=== PATIENT | female | born 1965 | race African-American/Black ===

== ENCOUNTER 2016-09-05 12:56 | Inpatient (IN) | payer OTHER ==
[~2016-09-05] VITALS: Ht 163.8 cm; Wt 62.6 kg
[2016-09-05 14:59] VITALS: BP 122/77
[2016-09-05] MEDS ORDERED: Tylenol #3 tab (300mg/30mg) ORAL ONE (15:15)
[2016-09-05 15:17] LABS: KETONES,URINE NEGATIVE (NEGATIVE); LEUKOCYTE ESTERASE ,URINE NEGATIVE (NEGATIVE); NITRITE,URINE NEGATIVE (NEGATIVE); PH,URINE 6 (4.5-8.0); PROTEIN,URINE 1+ (NEGATIVE); UROBILINOGEN,URINE NORMAL MG/DL (0.0-1.0)
[2016-09-05 15:18] LABS: APPEARANCE,URINE CLEAR
[2016-09-05 15:21] LABS: BASOPHILS % (AUTO) 0.8 % (0.0-2.0); EOSINOPHILS % (AUTO) 6.2 % (0.0-3.0); MEAN CORPUSCULAR HEMOGLOBIN 28.4 PG (27.0-31.0); MEAN CORPUSCULAR HGB CONC 30.9 G/DL (32.0-36.0); MEAN CORPUSCULAR VOLUME 92 FL (80-99); MONOCYTES % (AUTO) 6.8 % (1.0-10.0); NEUTROPHILS % (AUTO) 58.1 % (45.0-75.0); PLATELET COUNT 403 K/UL (150-450); RED BLOOD COUNT 3.99 M/UL (4.20-5.40); RED CELL DISTRIBUTION WIDTH 13.1 % (11.6-14.8); WHITE BLOOD COUNT 8.3 K/UL (4.8-10.8)
[2016-09-05 15:31] LABS: BACTERIA,URINE FEW /HPF; SQUAMOUS EPITHELIAL CELL,UR FEW /LPF (NONE/OCC); WBC,URINE 0-2 /HPF (0 - 2)
[2016-09-05 15:33] LABS: ALANINE AMINOTRANSFERASE 12 U/L (3-33); ALBUMIN/GLOBULIN RATIO 0.9 (1.0-2.7); ANION GAP 12 (5-15); ASPARTATE AMINO TRANSFERASE 17 U/L (5-40); CALCIUM 9.2 mg/dL (8.6-10.2); CARBON DIOXIDE 28 mEQ/L (20-30); CHLORIDE 101 mEQ/L (98-107); CREATININE 0.9 mg/dL (0.5-0.9); GLOMERULAR FILTRATION RATE > 60 mL/min (>60); HEMOLYSIS 7; POTASSIUM 3.2 mEQ/L (3.4-4.9); SODIUM 141 mEQ/L (135-145); TOTAL PROTEIN 7.6 g/dL (6.6-8.7)
[2016-09-05] MEDS ORDERED: ceFAZolin sod 1 GM in NS 55 ML IVPB ONE (15:45)
[2016-09-05] MEDS ORDERED: Milk of Magnesia 30ml Ud ORAL PRN (16:00)
[2016-09-05] MEDS ORDERED: Mylanta II UD 30ml ORAL PRN (16:00)
[2016-09-05] MEDS ORDERED: Morphine Sulfate 4mg/ml Inj IVP PRN (16:00)
[2016-09-05] MEDS ORDERED: Morphine Sulfate 2mg/ml Inj IVP PRN (16:00)
[2016-09-05] MEDS ORDERED: LORazepam Inj 2mg/ml 1ml IV PRN (16:00)
--- NOTE | 2016-09-05 16:07 | History and Physical ---
History of Present Illness General Date patient seen: Sep 05, 2016 Time patient seen: 16:03 Reason for Hospitalization: General Complaint Present Illness HPI 50 y/o AA female with hx of hidradenitis, presents with painful groin lesions for the past 1-2 weeks. No fevers/chills. Attempted po abx but acquired cdiff as a result. Pain is difficult to control. No chest pain or dyspnea. No hx of CAD/CHF/MICOPD/CVA/DM/HTN. She takes only herbal meds, can walk more than a mile without ever experiencing chest pain or dyspnea. Allergies: Coded Allergies: No Known Allergies (Unverified , 09/05/16) Patient History History Provided By: Patient Healthcare decision maker NONE Resuscitation status Advanced Directive on File Past Medical/Surgical History Past Medical/Surgical History: (1) Groin abscess Family History Family History: Patient reports no known family medical history. Social History Social History: (1) No significant social history Review of Systems ROS Narrative CONSTITUTIONAL: No weight loss, fever, chills, weakness or fatigue. HEENT: Eyes: No visual loss, blurred vision, double vision or yellow sclerae. Ears, Nose, Throat: No hearing loss, sneezing, congestion, runny nose or sore throat. SKIN: No rash or itching. CARDIOVASCULAR: No chest pain, chest pressure or chest discomfort. No palpitations or edema. RESPIRATORY: No shortness of breath, cough or sputum. GASTROINTESTINAL: No anorexia, nausea, vomiting or diarrhea. No abdominal pain or blood. NEUROLOGICAL: No headache, dizziness, syncope, paralysis, ataxia, numbness or tingling in the extremities. No change in bowel or bladder control. MUSCULOSKELETAL: +groin pain HEMATOLOGIC: No anemia, bleeding or bruising. LYMPHATICS: No enlarged nodes. No history of splenectomy. PSYCHIATRIC: No history of depression or anxiety. ENDOCRINOLOGIC: No reports of sweating, cold or heat intolerance. No polyuria or polydipsia. ALLERGIES: No history of asthma, hives, eczema or rhinitis. Physical Exam Physical Exam Narrative General: alert, cooperative, no distress, appears stated age Head: normocephalic, without obvious abnormality, atraumatic Eyes: conjunctivae/corneas clear. PERRL, EOM's intact Throat: lips, mucosa, and tongue normal. MMM Neck: supple, symmetrical, trachea midline, and no JVD Lungs: clear to auscultation bilaterally Heart: regular rate and rhythm, S1, S2 normal, no murmur, click, rub or gallop Abdomen: soft, non-tender, non-distended, bowel sounds normal; no masses or organomegaly Extremities: multiple open groin lesions, some erythema Pulses: 2+ and symmetric Skin: skin color, texture, turgor normal; no rashes or lesions Neurologic: grossly normal, no focal deficits Last 24 Hour Vital Signs Date Time Temp Pulse Resp B/P Pulse Ox O2 Delivery O2 Flow Rate FiO2 09/05/16 14:59 97.9 87 18 122/77 100 Room Air 09/05/16 13:16 97.9 81 18 122/77 100 Room Air Laboratory Tests Test 09/05/16 14:30 09/05/16 14:50 Urine Color Yellow Urine Appearance Clear Urine pH 6 (4.5-8.0) Urine Specific [place] 1.015 (1.005-1.035) Urine Protein 1+ (NEGATIVE) H Urine Glucose (UA) Negative (NEGATIVE) Urine Ketones Negative (NEGATIVE) Urine Occult Blood 3+ (NEGATIVE) H Urine Nitrite Negative (NEGATIVE) Urine Bilirubin Negative (NEGATIVE) Urine Urobilinogen Normal MG/DL (0.0-1.0) Urine Leukocyte Esterase Negative (NEGATIVE) Urine RBC 2-4 /HPF (0 - 2) H Urine WBC 0-2 /HPF (0 - 2) Urine Squamous Epithelial Cells Few /LPF (NONE/OCC) Urine Bacteria Few /HPF (NONE) White Blood Count 8.3 K/UL (4.8-10.8) Red Blood Count 3.99 M/UL (4.20-5.40) L Hemoglobin 11.3 G/DL (12.0-16.0) L Hematocrit 36.7 % (37.0-47.0) L Mean Corpuscular Volume 92 FL (80-99) Mean Corpuscular Hemoglobin 28.4 PG (27.0-31.0) Mean Corpuscular Hemoglobin Concent 30.9 G/DL (32.0-36.0) L Red Cell Distribution Width 13.1 % (11.6-14.8) Platelet Count 403 K/UL (150-450) Mean Platelet Volume 6.0 FL (6.5-10.1) L Neutrophils (%) (Auto) 58.1 % (45.0-75.0) Lymphocytes (%) (Auto) 28.0 % (20.0-45.0) Monocytes (%) (Auto) 6.8 % (1.0-10.0) Eosinophils (%) (Auto) 6.2 % (0.0-3.0) H Basophils (%) (Auto) 0.8 % (0.0-2.0) Sodium Level 141 mEQ/L (135-145) Potassium Level 3.2 mEQ/L (3.4-4.9) L Chloride Level 101 mEQ/L (98-107) Carbon Dioxide Level 28 mEQ/L (20-30) Anion Gap 12 (5-15) Blood Urea Nitrogen 13 mg/dL (7-23) Creatinine 0.9 mg/dL (0.5-0.9) Estimat Glomerular Filtration Rate > 60 mL/min (>60) Glucose Level 79 mg/dL (74-106) Lactic Acid Level 0.50 mmol/L (0.66-2.22) L Calcium Level 9.2 mg/dL (8.6-10.2) Total Bilirubin < 0.2 mg/dL (0.0-1.2) Aspartate Amino Transf (AST/SGOT) 17 U/L (5-40) Alanine Aminotransferase (ALT/SGPT) 12 U/L (3-33) Alkaline Phosphatase 106 U/L (35-104) H Total Protein 7.6 g/dL (6.6-8.7) Albumin 3.7 g/dL (3.5-5.2) Globulin 3.9 g/dL Albumin/Globulin Ratio 0.9 (1.0-2.7) L Height (Feet): 5 Height (Inches): 4.00 Weight (Pounds): 138 Medications Current Medications Medications (Trade) Dose Ordered Sig/Dylon Route PRN Reason Start Time Stop Time Status Last Admin Dose Admin Acetaminophen (Tylenol) 650 mg Q4H PRN ORAL Mild Pain (Pain Scale 1-3) 09/05/16 16:00 10/05/16 15:59 UNV Acetaminophen (Tylenol) 650 mg Q4H PRN ORAL fever 09/05/16 16:00 10/05/16 15:59 UNV Al Hydroxide/Mg Hydroxide (Mylanta II) 30 ml Q6H PRN ORAL dyspepsia 09/05/16 16:00 10/05/16 15:59 UNV Bisacodyl (Dulcolax) 10 mg HSPRN PRN RECTAL Constipation 09/05/16 16:00 10/05/16 15:59 UNV Cefazolin Sodium 1 gm/Sodium Chloride 55 ml @ 110 mls/hr ONCE ONCE IVPB 09/05/16 15:45 09/05/16 16:14 Cefazolin Sodium/ Dextrose (Ancef/D5W) 55 ml @ 110 mls/hr Q8HR IVPB 09/05/16 22:00 09/12/16 21:59 UNV Dextrose STAT PRN IV Hypoglycemia 09/05/16 16:00 10/05/16 15:59 UNV Dextrose/Sodium Chloride (D5ns) 1,000 ml @ 50 mls/hr Q20H IV 09/06/16 00:00 10/06/16 00:00 UNV Diphenhydramine HCl (Benadryl) 25 mg Q6H PRN ORAL Itching/Pruritis 09/05/16 16:00 10/05/16 15:59 UNV Docusate Sodium (Colace) 100 mg EVERY 12 HOURS ORAL 09/05/16 21:00 10/05/16 20:59 UNV Heparin Sodium (Porcine) (Heparin 5000 units/ml) 5,000 units EVERY 8 HOURS SUBQ 09/05/16 22:00 10/05/16 21:59 UNV Lorazepam (Ativan 2mg/ml 1ml) 0.5 mg Q4H PRN IV For Anxiety 09/05/16 16:00 09/12/16 15:59 UNV Magnesium Hydroxide (Mom) 30 ml HSPRN PRN ORAL Constipation 09/05/16 16:00 10/05/16 15:59 UNV Morphine Sulfate (Morphine Sulfate) 2 mg Q4HR PRN IVP Moderate Pain (Pain Scale 4-6) 09/05/16 16:00 09/12/16 15:59 UNV Morphine Sulfate (Morphine Sulfate) 4 mg Q4HR PRN IVP Severe Pain (Pain Scale 7-10) 09/05/16 16:00 09/12/16 15:59 UNV Ondansetron HCl (Zofran) 4 mg Q6H PRN IVP Nausea & Vomiting 09/05/16 16:00 10/05/16 15:59 UNV Polyethylene Glycol (Miralax) 17 gm HSPRN PRN ORAL Constipation 09/05/16 16:00 10/05/16 15:59 UNV Temazepam (Restoril) 15 mg HSPRN PRN ORAL Insomnia 09/05/16 16:00 09/12/16 15:59 UNV Assessment/Plan Problem List: (1) Groin abscess Assessment & Plan: Admit to inpatient Check blood cx Start IV abx Pain control Supp care Plastic surgery consult If patient is required to have surgery, based on the patient's medical history, and other available ancillary data, the patient is a LOW risk for an INTERMEDIATE risk procedure. Per the most recent ACC/AHA guidelines, the patient does not need any further cardiopulmonary testing prior to the procedure and there do not appear to be any clear medical contraindications to proceeding with the proposed procedure. A total of 31mins of time was spent with this patient on coordination of care and counseling in addition to the face to face time. ICD Codes: L02.214 - Cutaneous abscess of groin SNOMED: [id number] KENDRICK WILDER Sep 05, 2016 16:07
[2016-09-05 16:14] VITALS: BP 118/78
--- NOTE | 2016-09-05 16:34 | Diagnostic Imaging Report ---
Indication: Right-sided chest pain Technique: One view of the chest Comparison: none Findings: No acute infiltrates, effusions, or congestion. Tortuous calcified aorta. Normal heart size. Upper mediastinum unremarkable. Impression: No acute process.
--- NOTE | 2016-09-05 17:39 | Emergency Room Report ---
History of Present Illness General Chief Complaint: General Complaint Source: Patient Present Illness HPI 50-year-old female presents ED for evaluation. Patient referred here for admission and preoperative evaluation. Patient has history of hidradenitis in the groin area and labia. Has had it for one year now. Has not previously sought any medical attention. Patient is evaluated by Dr Strong and he asked patient to come in for preoperative workup and admission. Patient scheduled for surgery tomorrow. Patient notes some pain in the groin area. /10. Throbbing. Nonradiating. No other aggravating or relieving factors. Denies fevers chills. Denies discharge. Denies any other associated symptom Allergies: Coded Allergies: No Known Allergies (Unverified , 09/05/16) Patient History Past Medical History: none Past Surgical History: none Pertinent Family History: none Social History: Denies: alcohol use, drug use, smoking Last Menstrual Period: none Now: No Immunizations: UTD Reviewed Nursing Documentation: PMH: Agreed, PSxH: Agreed Nursing Documentation-PMH Past Medical History: No History, Except For Hx Cardiac Problems: No Hx Cancer: No Hx Gastrointestinal Problems: No Hx Neurological Problems: No Review of Systems All Other Systems: negative except mentioned in HPI Physical Exam Vital Signs Date Time Temp Pulse Resp B/P Pulse Ox O2 Delivery O2 Flow Rate FiO2 09/05/16 13:16 97.9 81 18 122/77 100 Room Air Sp02 EP Interpretation: reviewed, normal General Appearance: no apparent distress, alert, GCS 15, non-toxic Head: normocephalic Eyes: bilateral eye PERRL, bilateral eye normal inspection ENT: normal ENT inspection Neck: normal inspection Respiratory: chest non-tender, lungs clear, normal breath sounds, speaking full sentences Cardiovascular #1: regular rate, rhythm, no edema Gastrointestinal: normal bowel sounds, non tender, soft, non-distended, no guarding, no rebound Rectal: black stool Genitourinary: no CVA tenderness, other - hidradenitis to groin and labia Musculoskeletal: normal inspection Neurologic: alert, oriented x3, responsive, motor strength/tone normal, sensory intact, speech normal Psychiatric: normal inspection Skin: normal inspection Lymphatic: normal inspection Medical Decision Making Diagnostic Impression: Primary Impression: Groin abscess Additional Impression: Hidradenitis ER Course Hospital Course 50-year-old female referred to ED for admission. History of hidradenitis to groin/labia Clinical course Patient placed on stretcher. After initial history and physical I ordered labs , blood Cx, UA, IVFs, ancef labs reviewed - no leukocytosis, Hb/Hct stable, no electrolyte abnormalities. EKG - NSR, no acute processes CXR - no acute process antibiotics given. Case discussed with Dr Chun and he agreed to accept the patient to his service for further care and support Diagnosis - hidradenitis Patient admitted to floor in serious condition Labs Test 09/05/16 14:30 09/05/16 14:50 Urine Color Yellow Urine Appearance Clear Urine pH 6 (4.5-8.0) Urine Specific [place] 1.015 (1.005-1.035) Urine Protein 1+ (NEGATIVE) Urine Glucose (UA) Negative (NEGATIVE) Urine Ketones Negative (NEGATIVE) Urine Occult Blood 3+ (NEGATIVE) Urine Nitrite Negative (NEGATIVE) Urine Bilirubin Negative (NEGATIVE) Urine Urobilinogen Normal MG/DL (0.0-1.0) Urine Leukocyte Esterase Negative (NEGATIVE) Urine RBC 2-4 /HPF (0 - 2) Urine WBC 0-2 /HPF (0 - 2) Urine Squamous Epithelial Cells Few /LPF (NONE/OCC) Urine Bacteria Few /HPF (NONE) White Blood Count 8.3 K/UL (4.8-10.8) Red Blood Count 3.99 M/UL (4.20-5.40) Hemoglobin 11.3 G/DL (12.0-16.0) Hematocrit 36.7 % (37.0-47.0) Mean Corpuscular Volume 92 FL (80-99) Mean Corpuscular Hemoglobin 28.4 PG (27.0-31.0) Mean Corpuscular Hemoglobin Concent 30.9 G/DL (32.0-36.0) Red Cell Distribution Width 13.1 % (11.6-14.8) Platelet Count 403 K/UL (150-450) Mean Platelet Volume 6.0 FL (6.5-10.1) Neutrophils (%) (Auto) 58.1 % (45.0-75.0) Lymphocytes (%) (Auto) 28.0 % (20.0-45.0) Monocytes (%) (Auto) 6.8 % (1.0-10.0) Eosinophils (%) (Auto) 6.2 % (0.0-3.0) Basophils (%) (Auto) 0.8 % (0.0-2.0) Sodium Level 141 mEQ/L (135-145) Potassium Level 3.2 mEQ/L (3.4-4.9) Chloride Level 101 mEQ/L (98-107) Carbon Dioxide Level 28 mEQ/L (20-30) Anion Gap 12 (5-15) Blood Urea Nitrogen 13 mg/dL (7-23) Creatinine 0.9 mg/dL (0.5-0.9) Estimat Glomerular Filtration Rate > 60 mL/min (>60) Glucose Level 79 mg/dL (74-106) Lactic Acid Level 0.50 mmol/L (0.66-2.22) Calcium Level 9.2 mg/dL (8.6-10.2) Total Bilirubin < 0.2 mg/dL (0.0-1.2) Aspartate Amino Transf (AST/SGOT) 17 U/L (5-40) Alanine Aminotransferase (ALT/SGPT) 12 U/L (3-33) Alkaline Phosphatase 106 U/L (35-104) Total Protein 7.6 g/dL (6.6-8.7) Albumin 3.7 g/dL (3.5-5.2) Globulin 3.9 g/dL Albumin/Globulin Ratio 0.9 (1.0-2.7) EKG Diagnostic Results Rate: normal Rhythm: NSR ST Segments: no acute changes ASA given to the pt in ED: No Rhythm Strip Diag. Results EP Interpretation: yes Rhythm: NSR, no PVC's, no ectopy Chest X-Ray Diagnostic Results EP Interpretation: No Findings: no consolidation, no effusion, no pneumothorax, no acute cardiopulmonary disease Number of Views: 1 Last Vital Signs Date Time Temp Pulse Resp B/P Pulse Ox O2 Delivery O2 Flow Rate FiO2 09/05/16 16:53 97.9 09/05/16 16:20 78 20 118/78 100 Room Air Status: improved Disposition: ADMITTED INPATIENT Condition: Stable Referrals: NON PHYSICIAN (PCP) KAREN DURBIN M.D. Sep 05, 2016 17:39
[2016-09-05] MEDS ORDERED: Norco 5mg/325mg tab ORAL PRN (18:00)
[2016-09-05] MEDS ORDERED: traMADol 50mg tab ORAL PRN (18:00)
[2016-09-05] MEDS: D5NS 1,000 ML IV SCH (18:14)
[2016-09-05] MEDS: Lactobacillus-GG tablet ORAL SCH (18:43)
[2016-09-05 18:48] VITALS: BP 104/61
[2016-09-05 20:00] VITALS: BP 96/57
[2016-09-05] MEDS: Docusate 100mg tablet ORAL SCH (21:56)
[2016-09-05] MEDS: ceFAZolin sod 1 GM in D5W 55 ML IVPB SCH (21:57)
[2016-09-05] MEDS: Heparin 5000 units/ml inj SUBQ SCH (22:00)
[2016-09-06] VITALS (14 sets, daily range): BP systolic 108–145; BP diastolic 72–95
[2016-09-06] MEDS: ceFAZolin sod 1 GM in D5W 55 ML IVPB SCH ×3 (05:59→21:40)
[2016-09-06] MEDS: Heparin 5000 units/ml inj SUBQ SCH ×2 (06:00→21:00)
[2016-09-06 07:22] LABS: ANION GAP 12 (5-15); CALCIUM 9.2 mg/dL (8.6-10.2); CARBON DIOXIDE 25 mEQ/L (20-30); CHLORIDE 104 mEQ/L (98-107); CREATININE 0.6 mg/dL (0.5-0.9); GLOMERULAR FILTRATION RATE > 60 mL/min (>60); HEMOLYSIS 0; POTASSIUM 4.4 mEQ/L (3.4-4.9); SODIUM 141 mEQ/L (135-145)
[2016-09-06] MEDS: Lactobacillus-GG tablet ORAL SCH ×2 (08:38→18:00)
[2016-09-06] MEDS: Docusate 100mg tablet ORAL SCH ×2 (08:38→21:00)
[2016-09-06] MEDS ORDERED: Bacitracin 50000 Units Vial ONE (12:33)
[2016-09-06] MEDS ORDERED: Lidocaine 1% 10mg/ml/Epi 0.005mg/ml 30ml vial INJ ONE ×3 (12:33→15:05)
[2016-09-06] MEDS: D5NS 1,000 ML IV SCH ×2 (12:34→21:40)
--- NOTE | 2016-09-06 13:17 | Pre-Procedure Note/Attestation ---
Pre-Procedure Note/Attestation Complete Prior to Procedure Planned Procedure: bilateral Procedure Narrative: Excision of left buttock tissue and right groin/labia with flap elevation Attestation I attest that I discussed the nature of the procedure; its benefits; risks and complications; and alternatives (and the risks and benefits of such alternatives ), prior to the procedure, with the patient (or the patient's legal community relations representative). I attest that, if there was a reasonable possibility of needing a blood transfusion, the patient (or the patient's legal community relations representative) was given the [facility] standardized written summary, pursuant to the James Chava Blood Safety Act ([place] Health and Safety Code # 1645, as amended). I attest that I re-evaluated the patient just prior to the surgery and that there has been no change in the patient's H&P, except as documented below: FABIOLA SOW Sep 06, 2016 13:17
--- NOTE | 2016-09-06 13:18 | Operative Note - PDOC ---
Operative Note Operative Note Pre-op Diagnosis: Left buttock and right groin infected tissue Procedure: Excision of infected left buttock tissue and right groin tissue with flap elevation Surgeon: Ligia [place] Mill Operator Core Sand: Roe Anesthesia: general Specimen: yes Estimated Blood Loss: minimal Drains: none Implant(s) used?: No FABIOLA SOW Sep 06, 2016 13:18
[2016-09-06] MEDS ORDERED: Transderm Scop 1.5mg TDERMAL ONE (13:45)
[2016-09-06] MEDS ORDERED: NS Irrig 1000ml IRRIG ONE (14:00)
--- NOTE | 2016-09-06 14:46 | General Progress Note ---
Assessment/Plan Problem List: (1) Groin abscess Assessment & Plan: In OR today f/u blood cx Cont IV abx Pain control Supp care Plastic surgery consult A total of 31mins of time was spent with this patient on coordination of care and counseling in addition to the face to face time. ICD Codes: L02.214 - Cutaneous abscess of groin SNOMED: [id number] Subjective Date patient seen: Sep 06, 2016 Time patient seen: 14:45 ROS Limited/Unobtainable: No Allergies: Coded Allergies: No Known Allergies (Unverified , 09/05/16) Subjective In OR right now for wound surgery, no chest pain or dyspena. Objective Last 24 Hour Vital Signs Date Time Temp Pulse Resp B/P Pulse Ox O2 Delivery O2 Flow Rate FiO2 09/06/16 12:01 97.7 88 20 112/74 98 Room Air 09/06/16 08:18 98.2 75 20 108/72 99 Room Air 09/06/16 04:00 97.0 75 18 111/74 98 Room Air 09/05/16 20:00 97.5 72 18 96/57 97 Room Air 09/05/16 18:48 97.3 83 18 104/61 94 Room Air 09/05/16 16:53 97.9 09/05/16 16:20 97.9 78 20 118/78 100 Room Air 09/05/16 16:14 78 20 118/78 100 Room Air 09/05/16 14:59 97.9 87 18 122/77 100 Room Air Intake and Output 09/05/16 09/06/16 19:00 07:00 Intake Total 1055 ml 540 ml Balance 1055 ml 540 ml Intake Oral 240 ml IV Total 1055 ml 300 ml # Voids 2 4 # Bowel Movements 1 1 Laboratory Tests 09/05/16 14:50: White Blood Count 8.3, Red Blood Count 3.99L, Hemoglobin 11.3L, Hematocrit 36.7L , Mean Corpuscular Volume 92, Mean Corpuscular Hemoglobin 28.4, Mean Corpuscular Hemoglobin Concent 30.9L, Red Cell Distribution Width 13.1, Platelet Count 403, Mean Platelet Volume 6.0L, Neutrophils (%) (Auto) 58.1, Lymphocytes (%) (Auto) 28.0, Monocytes (%) (Auto) 6.8, Eosinophils (%) (Auto) 6.2H, Basophils (%) (Auto) 0.8, Sodium Level 141, Potassium Level 3.2L, Chloride Level 101, Carbon Dioxide Level 28, Anion Gap 12, Blood Urea Nitrogen 13, Creatinine 0.9, Estimat Glomerular Filtration Rate > 60, Glucose Level 79, Lactic Acid Level 0.50L, Calcium Level 9.2, Total Bilirubin < 0.2, Aspartate Amino Transf (AST/SGOT) 17, Alanine Aminotransferase (ALT/SGPT) 12, Alkaline Phosphatase 106H, Total Protein 7.6, Albumin 3.7, Globulin 3.9, Albumin/ Globulin Ratio 0.9L 09/06/16 05:25: Sodium Level 141, Potassium Level 4.4, Chloride Level 104, Carbon Dioxide Level 25, Anion Gap 12, Blood Urea Nitrogen 9, Creatinine 0.6, Estimat Glomerular Filtration Rate > 60, Glucose Level 88, Calcium Level 9.2 09/06/16 06:00: Urine HCG, Qualitative Negative Height (Feet): 5 Height (Inches): 4.50 Weight (Pounds): 138 KENDRICK WILDER Sep 06, 2016 14:46
[2016-09-06] MEDS ORDERED: LR 1000ml 1,000 ML IVLG SCH (14:48)
--- NOTE | 2016-09-06 14:48 | Anethesia Preoperative Eval ---
Anesthesia Pre-op PMH/ROS General Date of Evaluation: Sep 06, 2016 Time of Evaluation: 13:40 Anesthesiologist: hazel ASA Score: ASA 2 Mallampati Score Class I : Soft palate, uvula, fauces, pillars visible Class II: Soft palate, uvula, fauces visible Class III: Soft palate, base of uvula visible Class IV: Only hard plate visible Mallampati Classification: Class II Surgeon: Ligia Diagnosis: Recurrent hydradenitis Surgical Procedure: Excision of bilateral groin hydradenitis Anesthesia History: PONV Family History: no anesthesia problems Allergies: Coded Allergies: No Known Allergies (Unverified , 09/05/16) Medications: see eMAR Past Medical History Cardiovascular: Denies: CAD, HTN, [place], arrhythmia, other, valve dz Pulmonary: Denies: COPD, ED, asthma, other Gastrointestinal/Genitourinary: Reports: GERD - mild, Denies: CRI, ESRD, other Neurologic/Psychiatric: Denies: CVA, TIA, dementia, depression/anxiety, other Endocrine: Denies: DM, hypothyroidism, other, steroids HEENT: Denies: [place] (L), [place] (R), cataract (L), cataract (R), glaucoma, other Hematology/Immune: Denies: DVT, anemia, bleeding disorder, other Musculoskeletal/Integumentary: Reports: other - Recurrent HS, Denies: DDD, DJD, OA, RA, edema PMH Narrative: as above PSxH Narrative: Partial hysterectomy, abdominoplasty Anesthesia Pre-op Phys. Exam Physician Exam Last Vital Signs Date Time Temp Pulse Resp B/P Pulse Ox O2 Delivery O2 Flow Rate FiO2 09/06/16 12:01 97.7 88 20 112/74 98 Room Air Constitutional: NAD Neurologic: CN 2-12 intact Cardiovascular: RRR, no M/R/G Respiratory: CTA Gastrointestinal: S/NT/ND Airway Exam Mallampati Score: Class II MO: full Neck: flexible ROM: full Teeth: intact Dentures: no lower, no upper Anesthesia Pre-op A/P Labs Hematology Test 09/05/16 14:50 White Blood Count 8.3 K/UL (4.8-10.8) Red Blood Count 3.99 M/UL (4.20-5.40) L Hemoglobin 11.3 G/DL (12.0-16.0) L Hematocrit 36.7 % (37.0-47.0) L Mean Corpuscular Volume 92 FL (80-99) Mean Corpuscular Hemoglobin 28.4 PG (27.0-31.0) Mean Corpuscular Hemoglobin Concent 30.9 G/DL (32.0-36.0) L Red Cell Distribution Width 13.1 % (11.6-14.8) Platelet Count 403 K/UL (150-450) Mean Platelet Volume 6.0 FL (6.5-10.1) L Neutrophils (%) (Auto) 58.1 % (45.0-75.0) Lymphocytes (%) (Auto) 28.0 % (20.0-45.0) Monocytes (%) (Auto) 6.8 % (1.0-10.0) Eosinophils (%) (Auto) 6.2 % (0.0-3.0) H Basophils (%) (Auto) 0.8 % (0.0-2.0) Chemistry Test 09/05/16 14:50 09/06/16 05:25 Sodium Level 141 mEQ/L (135-145) 141 mEQ/L (135-145) Potassium Level 3.2 mEQ/L (3.4-4.9) L 4.4 mEQ/L (3.4-4.9) Chloride Level 101 mEQ/L (98-107) 104 mEQ/L (98-107) Carbon Dioxide Level 28 mEQ/L (20-30) 25 mEQ/L (20-30) Anion Gap 12 (5-15) 12 (5-15) Blood Urea Nitrogen 13 mg/dL (7-23) 9 mg/dL (7-23) Creatinine 0.9 mg/dL (0.5-0.9) 0.6 mg/dL (0.5-0.9) Estimat Glomerular Filtration Rate > 60 mL/min (>60) > 60 mL/min (>60) Glucose Level 79 mg/dL (74-106) 88 mg/dL (74-106) Lactic Acid Level 0.50 mmol/L (0.66-2.22) L Calcium Level 9.2 mg/dL (8.6-10.2) 9.2 mg/dL (8.6-10.2) Total Bilirubin < 0.2 mg/dL (0.0-1.2) Aspartate Amino Transf (AST/SGOT) 17 U/L (5-40) Alanine Aminotransferase (ALT/SGPT) 12 U/L (3-33) Alkaline Phosphatase 106 U/L (35-104) H Total Protein 7.6 g/dL (6.6-8.7) Albumin 3.7 g/dL (3.5-5.2) Globulin 3.9 g/dL Albumin/Globulin Ratio 0.9 (1.0-2.7) L Urine Test Test 09/06/16 06:00 Urine HCG, Qualitative Negative Studies Pre-op Studies: EKG - NSR Risk Assessment & Plan Assessment: ASA 2 Plan: GA with ETT PONV prevention , Scopolamine patch ordered Status Change Before Surgery: No Pre-Antibiotics Drug: Ancef 1 gr. Given Within 1 Hr of Incision: Yes Time Given: 14:20 AMANDA VILLA M.D. Sep 06, 2016 14:48
[2016-09-06] MEDS ORDERED: Ketorolac 30mg Inj IV PRN (15:00)
[2016-09-06] MEDS ORDERED: Rate Change PCA 1 Each MISC PRN (15:00)
[2016-09-06] MEDS ORDERED: Propofol 10mg/ml 20ml IV ONE (15:00)
[2016-09-06] MEDS ORDERED: Sterile Water Irrig 1000ml IRRIG ONE (15:00)
[2016-09-06] MEDS ORDERED: Glycopyrrolate 0.2mg/ml 1ml Vial ONE (15:00)
[2016-09-06] MEDS ORDERED: Ketorolac 30mg Inj ONE (15:00)
[2016-09-06] MEDS ORDERED: Naloxone 0.4mg/ml Inj IV PRN (15:00)
[2016-09-06] MEDS ORDERED: NS Irrig 1000ml ONE (15:00)
[2016-09-06] MEDS ORDERED: Dexamethasone 4mg/ml vial ONE (15:00)
[2016-09-06] MEDS ORDERED: fentaNYL 100 mcg/2 mL IV PRN (15:00)
[2016-09-06] MEDS ORDERED: Neostigmine 1mg/ml 10ml Inj ONE (15:00)
[2016-09-06] MEDS ORDERED: Hydromorphone 0.5mg/0.5ml inj IVP PRN (15:00)
[2016-09-06] MEDS ORDERED: Metoclopramide 10mg/2ml Inj IVP PRN (15:00)
[2016-09-06] MEDS ORDERED: Morphine Sulfate 10mg/ml Inj ONE (15:00)
[2016-09-06] MEDS ORDERED: Succinylcholine 20mg/ml 10ml vial ONE (15:00)
[2016-09-06] MEDS ORDERED: Zemuron 50mg/5ml Inj IV ONE (15:00)
[2016-09-06] MEDS ORDERED: Meperidine 25mg/0.5ml Inj IV PRN (15:00)
[2016-09-06] MEDS ORDERED: DiphenhydrAMINE 50mg/ml Inj IVP PRN (15:00)
[2016-09-06] MEDS ORDERED: Midazolam 2mg/2ml Inj IVP PRN (15:00)
[2016-09-06] MEDS ORDERED: fentaNYL 100 mcg/2 mL IV ONE (15:00)
[2016-09-06] MEDS ORDERED: Midazolam 2mg/2ml Inj ONE (15:00)
[2016-09-06] MEDS ORDERED: Surgicel 4in x 8in TOPIC ONE (15:12)
[2016-09-06] MEDS: Metoclopramide 10mg/2ml Inj IVP PRN ×2 (15:47→19:51)
--- NOTE | 2016-09-06 15:49 | Immediate Post-Op Evaluation ---
Immediate Post-Op Evalulation Immediate Post-Op Evalulation Procedure: Excision of bilateral groin hydradenitis Date of Evaluation: Sep 06, 2016 Time of Evaluation: 15:47 IV Fluids: 1000 Blood Products: none Estimated Blood Loss: 50 Urinary Output: none Blood Pressure Systolic: 132 Blood Pressure Diastolic: 76 Pulse Rate: 86 Respiratory Rate: 22 O2 Sat by Pulse Oximetry: 99 Temperature (Fahrenheit): 97.6 Pain Score (1-10): 3 Nausea: No Vomiting: No Complications none Patient Status: reacts, patent, extubated, none Hydration Status: adequate AMANDA VILLA M.D. Sep 06, 2016 15:49
[2016-09-06] MEDS: PCA HYDROmorphone 1mg/ml 30 ML IV PRN (16:16)
--- NOTE | 2016-09-06 18:34 | Cardiology Report ---
APPROVED REPORT EKG Measurement Heart [id number] Normal sinus rhythm with sinus arrhythmia Normal ECG
[2016-09-06] MEDS: PCA shift volume MISC SCH (19:00)
--- NOTE | 2016-09-06 20:08 | Consultation ---
DATE OF CONSULTATION: 09/05/2016 ADMITTING PHYSICIAN: Amada Chun M.D. REASON FOR CONSULTATION: Infected right groin/labial mass. HISTORY OF PRESENT ILLNESS: The patient was admitted by the medical service for an infection in the right groin labial region. The patient presented with pain and drainage and occasional fevers at home. The patient was noted to have an area of tenderness, which I was asked to evaluate. PAST MEDICAL HISTORY: Significant for chronic pain in the region of the right groin and labial area. PAST SURGICAL HISTORY: Significant for abdominoplasty. PHYSICAL EXAMINATION: GENERAL: The patient is alert and oriented. HEART: Regular rate and rhythm. ABDOMEN: Soft, nontender, and nondistended. EXTREMITIES: Examination of the trunk and lower extremity revealed a irregular infected mass within the right groin labial region with purulent material emanating from the area. There is also a left buttock abscess. ASSESSMENT AND PLAN: This is a 50-year-old female with infected left buttock abscess as well as a infected right groin region. The patient has been on IV antibiotics. The plan will be to take the patient to the operating room for definitive debridement and radical excision of the infected right groin region with staged reconstruction. The plan will be to perform flap closure, however, given the amount of purulent material likely present within the infected tissue mass, it will be mendoza to perform a delayed closure once the flaps were elevated within 48 hours from this initial operation. The patient understands approach and plan and Dr. Chun will be the leach cell operator taking care of the patient while she is in-house. Gudelia Strong M.D. DR: JYOTI JOB#: [id number] CC:
--- NOTE | 2016-09-06 20:20 | Operative Note - Dictated ---
DATE OF OPERATION: 09/05/2016 PREOPERATIVE DIAGNOSES: 1. Infected right groin and labial mass. 2. Left buttock abscess. POSTOPERATIVE DIAGNOSES: 1. Infected right groin and labial mass. 2. Left buttock abscess. PROCEDURES: 1. Excision of infected right groin/sacral mass. 2. Elevation of right-sided medial thigh flap for staged closure of right groin labial wound . 3. Elevation of the superior groin flap for staged closure of right labial groin wound. 4. Debridement of left buttock abscess. SURGEON: Gudelia Strong M.D. PHP SOFTWARE ENGINEER: Diamond Au M.D. ANESTHESIA: General. EBL: 50 mL. COMPLICATIONS: None. DISPOSITION: Stable to the recovery room. INDICATIONS FOR SURGERY: This is a 50-year-old female, who was admitted to the emergency room with severe pain and drainage from right groin infected mass. She was started on IV antibiotics and on evaluation it was felt that she was an appropriate candidate for a staged approach with excision and reconstruction. She understood the risks and benefits of surgery and agreed to proceed. DETAILS OF THE OPERATION: The patient was brought to the operating room and laid in the lithotomy position on the operating room table. Her perineum and lower abdomen and upper thighs were prepped and draped in a sterile and usual fashion. We first began by using a marking pen to delineate the extent and of the irregular margins of the infected mass in the right groin and labial region as well as the finding of the left buttock abscess. Once this was done, a #10 blade was used to make the incisions around the infected groin mass and the mass was removed on block radically all the way down to the fascia over the adductor muscles inferiorly and the over the Mp's fascia superiorly. Once the mass completely and radically excised, we then proceeded to achieve hemostasis and noted that there was no way the wound would be able to be closed by primary closure as such we initially elevated medial thigh flap based off of perforators of the superficial femoral artery. This was fully mobilized at the fasciocutaneous level with proximal and distal incisions made to fully mobilize the flap. Following this, we noted at the superior aspect of the wound also required elevation of a groin flap to allow for definitive closure of the wound. This was elevated based off of her perforators of the pudendal artery with proximal and distal incisions made to fully mobilize the flap once both flaps were elevated, a tension-free reapproximation of the tissues was possible. The wound was then copiously irrigated with pulse lavage and it was temporarily tailor tacked closed completely using santino to assess the soft tissue extension by mobilization of the flaps and these were left alone for several minutes. We then turned our attention to the left buttock abscess which was approached using a #10 blade to make elliptical incisions around the abscess all way down to healthy bleeding subcutaneous fat and following this, the wound was copiously irrigated with pulse lavage and hemostasis was achieved. This particular wound was packed with Surgicel and given the fact that there was significant amount of purulent material in the right groin infected tissue we felt that it would not be appropriate to perform definitive flap closure of the wound. As such, the santino were removed. The wound was again examined. Hemostasis was achieved and the wound was then partially closed superiorly and inferiorly and packed with a wet-to-dry dressings with plan to bring the patient back to the operating room for definitive wound closure in 48 hours. She tolerated the procedure well. There was no complications. Gudelia Strong M.D. DR: Carloz JOB#: [id number] CC:
[2016-09-06] MEDS ORDERED: Zolpidem 5mg tab ORAL PRN (21:00)
[2016-09-07] VITALS: BP 107/83
--- NOTE | 2016-09-07 03:39 | Consultation ---
DATE OF CONSULTATION: 09/06/2016 CONSULTING PHYSICIAN: Saroj Caldwell M.D. REFERRING PHYSICIAN: Gudelia Strong M.D. REASON FOR CONSULTATION: Urinary retention and difficult catheterization. HISTORY OF PRESENT ILLNESS: This is a 50-year-old female. She has a history of hidradenitis of the groin and genital area. She is status post excision of left buttock tissue and groin, which was done earlier today. Apparently, there was some difficulty with placement of Mata catheter. Urology evaluation was requested. The patient denies previous bladder surgery. PAST MEDICAL HISTORY: Significant for above. PAST SURGICAL HISTORY: Hysterectomy and tummy tuck. MEDICATIONS: Current medication list was reviewed. ALLERGIES: No known drug allergies. PHYSICAL EXAMINATION: GENERAL: This is a well-developed and well-nourished female, slightly lethargic. VITAL SIGNS: Temperature is 98 degrees and blood pressure 126/80. ABDOMEN: Shows mild suprapubic fullness. There is dressing in the genital area. LABORATORY AND DIAGNOSTIC STUDIES: UA showed 2 to 4 RBCs. White count is 8.3. BUN is 9 and creatinine 0.6. Imaging studies, chest x-ray was noted. IMPRESSION: 1. Urinary retention. 2. Probable atonic bladder. 3. Hematuria. PLAN/DISCUSSION: I did evaluate the patient and she had findings consistent with bladder distention. Bedside bladder scan was done, which showed 600 mL of residual urine. I did speak with the patient and she did make an attempt to try to void, which she was not able to. She had some discomfort and as such, the patient requested to have a catheter placed. As such, I did personally perform the procedure at the beside. She did have some meatal stenosis, which was gently dilated and I passed the Mata catheter and there was return of close to a liter of grossly yellow urine. The catheter was left to gravity drainage. She is to have further procedures by Dr. Strong and we will plan for a voiding trial once she is more medically stabilized and more ambulatory and her procedures are all done. We will consider cystoscopy in the future also. I will follow the patient and any other recommendation will be forthcoming. Thank you, Dr. Strong, for asking me to participate in this consultation. Saroj Caldwell M.D. DR: Dayne JOB#: [id number] CC: Gudelia Strong M.D.; Fax#: [phone] Chun M.D. ; Fax#: [phone] MTDD
[2016-09-07 04:00] VITALS: BP 108/68
[2016-09-07] MEDS: ceFAZolin sod 1 GM in D5W 55 ML IVPB SCH ×3 (05:12→21:15)
[2016-09-07] MEDS: PCA shift volume MISC SCH ×2 (07:12→19:00)
[2016-09-07 08:00] VITALS: BP 107/73
[2016-09-07] MEDS: Docusate 100mg tablet ORAL SCH ×2 (08:24→21:15)
[2016-09-07] MEDS: Lactobacillus-GG tablet ORAL SCH ×2 (08:24→18:00)
[2016-09-07] MEDS: Heparin 5000 units/ml inj SUBQ SCH ×2 (08:35→21:17)
--- NOTE | 2016-09-07 09:30 | General Progress Note ---
Progress Note Progress Note Pt seen and examined. POD# 1 and doing well. Has no pain. Mata placed last night. Plan for OR tomorrow for wound closure. MD MAGI Rodríguez AMIR Sep 07, 2016 09:30
[2016-09-07 12:00] VITALS: BP 106/65
--- NOTE | 2016-09-07 13:51 | General Progress Note ---
Assessment/Plan Problem List: (1) Groin abscess Assessment & Plan: s/p wound surgery, I+D For OR tomorrow for closure f/u blood cx Cont IV abx Pain control Supp care Plastic surgery consult A total of 31mins of time was spent with this patient on coordination of care and counseling in addition to the face to face time. ICD Codes: L02.214 - Cutaneous abscess of groin SNOMED: [id number] Subjective Date patient seen: Sep 07, 2016 Time patient seen: 13:49 ROS Limited/Unobtainable: No Allergies: Coded Allergies: No Known Allergies (Unverified , 09/05/16) Subjective POD#1 for wound surgery, no chest pain or dyspena. Urinary retention s/p araya by Urology. No n/v today, pain well controlled. Objective Last 24 Hour Vital Signs Date Time Temp Pulse Resp B/P Pulse Ox O2 Delivery O2 Flow Rate FiO2 09/07/16 12:00 97.9 70 18 106/65 99 Room Air 09/07/16 12:00 20 09/07/16 08:00 18 09/07/16 08:00 97.9 69 17 107/73 96 Room Air 09/07/16 04:00 97.2 62 18 108/68 100 Nasal Cannula 2.0 09/07/16 04:00 18 09/07/16 00:00 97.0 66 18 107/83 100 Nasal Cannula 2.0 09/06/16 20:00 18 09/06/16 20:00 97.7 70 18 118/89 99 Room Air 70 09/06/16 18:11 18 09/06/16 18:00 97.5 89 18 126/87 99 Nasal Cannula 3.0 09/06/16 17:41 20 09/06/16 17:11 20 09/06/16 17:00 99.0 89 20 126/80 96 Nasal Cannula 3.0 09/06/16 17:00 98.0 09/06/16 16:56 20 09/06/16 16:47 98.0 88 20 121/86 100 Nasal Cannula 3.0 09/06/16 16:41 20 09/06/16 16:37 64 20 129/89 100 Nasal Cannula 3.0 09/06/16 16:31 20 09/06/16 16:26 20 09/06/16 16:16 60 20 135/95 100 Nasal Cannula 3.0 09/06/16 16:16 20 09/06/16 16:09 57 20 126/84 100 Simple Mask 10.0 09/06/16 15:49 86 22 99 09/06/16 15:48 80 20 132/85 100 Simple Mask 10.0 09/06/16 15:45 75 20 145/85 100 Simple Mask 10.0 09/06/16 15:40 75 20 133/89 100 Simple Mask 10.0 09/06/16 15:36 98.0 71 20 124/79 100 Simple Mask 10.0 Intake and Output 09/06/16 09/07/16 19:00 07:00 Intake Total 1350 ml 950 ml Output Total 50 ml 1600 ml Balance 1300 ml -650 ml Intake Oral 500 ml IV Total 1350 ml 450 ml Output Urine Total 1600 ml Estimated Blood Loss 50 ml Height (Feet): 5 Height (Inches): 4.50 Weight (Pounds): 138 Objective General: alert, cooperative, no distress, appears stated age Head: normocephalic, without obvious abnormality, atraumatic Eyes: conjunctivae/corneas clear. PERRL, EOM's intact Throat: lips, mucosa, and tongue normal. MMM Neck: supple, symmetrical, trachea midline, and no JVD Lungs: clear to auscultation bilaterally Heart: regular rate and rhythm, S1, S2 normal, no murmur, click, rub or gallop Abdomen: soft, non-tender, non-distended, bowel sounds normal; no masses or organomegaly Extremities: extremities normal, atraumatic, no cyanosis or edema Pulses: 2+ and symmetric Skin: skin color, texture, turgor normal; no rashes or lesions Neurologic: grossly normal, no focal deficits KENDRICK WILDER Sep 07, 2016 13:51
[2016-09-07] MEDS: PCA HYDROmorphone 1mg/ml 30 ML IV PRN (14:23)
[2016-09-07 16:00] VITALS: BP 101/60
--- NOTE | 2016-09-07 17:12 | Urology Progress Note ---
Assessment/Plan Assessment/Plan 1. Urinary retention. 2. Probable atonic bladder. 3. Hematuria. araya indwelling d/w pt and dr. alejandro will plan for cysto and urethral calibration tomorrow in OR to be coordinated with Dr. Alejandro's case obtain consent Subjective Allergies: Coded Allergies: No Known Allergies (Unverified , 09/05/16) Subjective all noted Objective Last 24 Hour Vital Signs Date Time Temp Pulse Resp B/P Pulse Ox O2 Delivery O2 Flow Rate FiO2 09/07/16 16:00 97.9 85 19 101/60 96 Room Air 09/07/16 12:00 97.9 70 18 106/65 99 Room Air 09/07/16 12:00 20 09/07/16 08:00 18 09/07/16 08:00 97.9 69 17 107/73 96 Room Air 09/07/16 04:00 97.2 62 18 108/68 100 Nasal Cannula 2.0 09/07/16 04:00 18 09/07/16 00:00 97.0 66 18 107/83 100 Nasal Cannula 2.0 09/06/16 20:00 18 09/06/16 20:00 97.7 70 18 118/89 99 Room Air 70 09/06/16 18:11 18 09/06/16 18:00 97.5 89 18 126/87 99 Nasal Cannula 3.0 09/06/16 17:41 20 Intake and Output 09/06/16 09/07/16 19:00 07:00 Intake Total 1350 ml 950 ml Output Total 50 ml 1600 ml Balance 1300 ml -650 ml Intake Oral 500 ml IV Total 1350 ml 450 ml Output Urine Total 1600 ml Estimated Blood Loss 50 ml Microbiology Date/Time Source Procedure Growth Status 09/05/16 14:05 Blood Blood Culture - Preliminary NO GROWTH AFTER 24 HOURS Resulted Current Medications Medications (Trade) Dose Ordered Sig/Dylon Route PRN Reason Start Time Stop Time Status Last Admin Dose Admin Acetaminophen 650 mg 650 mg Q4H PRN ORAL T>100.5 09/06/16 15:00 10/06/16 14:59 09/07/16 06:42 Al Hydroxide/Mg Hydroxide (Mylanta II) 30 ml Q6H PRN ORAL dyspepsia 09/05/16 16:00 10/05/16 15:59 Bisacodyl (Dulcolax) 10 mg HSPRN PRN RECTAL Constipation 3RD LINE AGENT 09/05/16 16:00 10/05/16 15:59 Cefazolin Sodium/ Dextrose (Ancef/D5W) 55 ml @ 110 mls/hr Q8HR IVPB 09/05/16 22:00 09/12/16 21:59 09/07/16 14:33 Dextrose STAT PRN IV Hypoglycemia 09/05/16 16:00 10/05/16 15:59 Dextrose/Sodium Chloride (D5ns) 1,000 ml @ 50 mls/hr Q20H IV 09/05/16 17:00 10/05/16 16:59 09/06/16 21:40 Diphenhydramine HCl (Benadryl) 25 mg Q6H PRN ORAL Itching/Pruritis 09/05/16 16:00 10/05/16 15:59 Docusate Sodium (Colace) 100 mg EVERY 12 HOURS ORAL 09/05/16 21:00 10/05/16 20:59 09/07/16 08:24 Heparin Sodium (Porcine) (Heparin 5000 units/ml) 5,000 units EVERY 12 HOURS SUBQ 09/06/16 21:00 10/06/16 20:59 09/07/16 08:35 Hydromorphone HCl (Dilaudid) 2 mg Q3H PRN SUBQ Severe Pain (Pain Scale 7-10) 09/06/16 15:00 09/08/16 14:59 Hydromorphone HCl (Dilaudid) 2 mg Q4H PRN IVP Moderate Pain (Pain Scale 4-6) 09/06/16 15:00 09/08/16 14:59 Hydromorphone HCl (FLIGHT OPERATIONS DISPATCH CLERK Dilaudid) 30 ml @ 0 mls/hr Q24H PRN IV For Pain 09/06/16 15:00 09/08/16 14:59 09/07/16 14:23 Lactobacillus Acidophilus (Culturelle) 1 tab TWICE A DAY ORAL 09/05/16 18:00 10/05/16 17:59 09/07/16 08:24 Lorazepam (Ativan 2mg/ml 1ml) 0.5 mg Q4H PRN IV For Anxiety 09/05/16 16:00 09/12/16 15:59 Magnesium Hydroxide (Mom) 30 ml HSPRN PRN ORAL Constipation 2ND LINE AGENT 09/05/16 16:00 10/05/16 15:59 Metoclopramide HCl (Reglan) 10 mg Q6H PRN IVP Nausea & Vomiting 09/06/16 13:30 10/06/16 13:29 09/06/16 19:51 Miscellaneous Medication (FLIGHT OPERATIONS DISPATCH CLERK Rate Change) 1 ea DAILY PRN MISC rate change 09/06/16 15:00 09/08/16 14:59 Miscellaneous Medication (FLIGHT OPERATIONS DISPATCH CLERK shift volume) 1 ea Q12HR@0700,1900 MISC 09/06/16 19:00 09/08/16 18:59 09/07/16 07:12 Naloxone HCl (Narcan) 0.1 mg PRN IV . 09/06/16 15:00 09/08/16 14:59 Ondansetron HCl (Zofran) 4 mg Q6H PRN IVP Nausea & Vomiting 09/06/16 13:30 10/06/16 13:29 09/06/16 18:29 Polyethylene Glycol (Miralax) 17 gm HSPRN PRN ORAL Constipation FIRST LINE AGENT 09/05/16 16:00 10/05/16 15:59 Zolpidem Tartrate (Ambien) 5 mg HSPRN PRN ORAL Insomnia 09/06/16 21:00 10/06/16 20:59 Height (Feet): 5 Height (Inches): 4.50 Weight (Pounds): 138 KEYLA KELLEY Sep 07, 2016 17:12
--- NOTE | 2016-09-07 17:27 | Pre-Procedure Note/Attestation ---
Pre-Procedure Note/Attestation Complete Prior to Procedure Planned Procedure: not applicable Procedure Narrative: cystoscopy, urethral dilation Indications for Procedure Pre-Operative Diagnosis: urinary retention Attestation I attest that I discussed the nature of the procedure; its benefits; risks and complications; and alternatives (and the risks and benefits of such alternatives ), prior to the procedure, with the patient (or the patient's legal printing supplies sales representative). I attest that, if there was a reasonable possibility of needing a blood transfusion, the patient (or the patient's legal printing supplies sales representative) was given the [facility] standardized written summary, pursuant to the James Chava Blood Safety Act ([place] Health and Safety Code # 1645, as amended). I attest that I re-evaluated the patient just prior to the surgery and that there has been no change in the patient's H&P, except as documented below: see progress notes KEYLA KELLEY Sep 07, 2016 17:27
[2016-09-07 20:00] VITALS: BP 98/78
[2016-09-07] MEDS: D5NS 1,000 ML IV SCH (21:15)
[2016-09-07] MEDS: Miralax 17gm pkt ORAL PRN (21:18)
[2016-09-08] VITALS (13 sets, daily range): BP systolic 93–154; BP diastolic 55–100
[2016-09-08] MEDS: ceFAZolin sod 1 GM in D5W 55 ML IVPB SCH ×3 (05:17→22:06)
[2016-09-08] MEDS ORDERED: Bacitracin 50000 Units Vial ONE (06:13)
[2016-09-08] MEDS ORDERED: EPINEPHrine 1mg/1ml Amp ONE (06:17)
[2016-09-08] MEDS ORDERED: Lidocaine 1% 10mg/ml/Epi 0.005mg/ml 30ml vial INJ ONE ×2 (06:17→06:20)
[2016-09-08] MEDS: PCA shift volume MISC SCH ×2 (07:00→19:00)
--- NOTE | 2016-09-08 07:01 | Pre-Procedure Note/Attestation ---
Pre-Procedure Note/Attestation Complete Prior to Procedure Planned Procedure: bilateral Procedure Narrative: Closure of right groin and left buttock wounds Indications for Procedure Pre-Operative Diagnosis: Left buttock and right groin infected tissue Attestation I attest that I discussed the nature of the procedure; its benefits; risks and complications; and alternatives (and the risks and benefits of such alternatives ), prior to the procedure, with the patient (or the patient's legal workforce services representative). I attest that, if there was a reasonable possibility of needing a blood transfusion, the patient (or the patient's legal workforce services representative) was given the [facility] standardized written summary, pursuant to the James Serena Blood Safety Act ([place] Health and Safety Code # 1645, as amended). I attest that I re-evaluated the patient just prior to the surgery and that there has been no change in the patient's H&P, except as documented below: FABIOLA SOW Sep 08, 2016 07:01
--- NOTE | 2016-09-08 07:02 | Operative Note - PDOC ---
Operative Note Operative Note Pre-op Diagnosis: Right groin and left buttock wound Procedure: Closure of right groin and left buttock wound Surgeon: Ligia Pearl Stringer: Shilpa Anesthesia: general Specimen: yes Condition: stable Estimated Blood Loss: minimal Drains: HEIDI Implant(s) used?: No FABIOLA SOW Sep 08, 2016 07:02
[2016-09-08] MEDS ORDERED: Rate Change PCA 1 Each MISC PRN ×2 (07:15→11:15)
[2016-09-08] MEDS ORDERED: Ketamine 500mg Inj ONE (07:30)
[2016-09-08] MEDS ORDERED: Zemuron 50mg/5ml Inj IV ONE (07:30)
[2016-09-08] MEDS ORDERED: Sterile Water Irrig 1000ml IRRIG ONE (07:30)
[2016-09-08] MEDS ORDERED: Transderm Scop 1.5mg TDERMAL ONE (07:30)
[2016-09-08] MEDS ORDERED: Morphine Sulfate 10mg/ml Inj ONE (07:30)
[2016-09-08] MEDS ORDERED: NS Irrig 1000ml ONE (07:30)
[2016-09-08] MEDS ORDERED: Dexamethasone 4mg/ml vial ONE (07:30)
[2016-09-08] MEDS ORDERED: Midazolam 2mg/2ml Inj ONE (07:30)
[2016-09-08] MEDS ORDERED: Labetalol 5mg/ml 20ml vial IV ONE (07:30)
[2016-09-08] MEDS ORDERED: fentaNYL 100 mcg/2 mL IV ONE (07:30)
[2016-09-08] MEDS ORDERED: LR 1000ml ONE (07:30)
[2016-09-08] MEDS ORDERED: Succinylcholine 20mg/ml 10ml vial ONE (07:30)
[2016-09-08] MEDS ORDERED: Propofol 10mg/ml 100ml btl IV ONE (07:30)
--- NOTE | 2016-09-08 07:55 | 48 Hour Post Anesthesia Eval ---
Post Anesthesia Evaluation Procedure: Excision of bilateral groin hydradenitis Date of Evaluation: Sep 08, 2016 Time of Evaluation: 06:32 Blood Pressure Systolic: 116 0: 87 Pulse Rate: 61 Respiratory Rate: 16 Temperature (Fahrenheit): 98.1 O2 Sat by Pulse Oximetry: 96 Airway: patent Nausea: No Vomiting: No Pain Intensity: 2 Hydration Status: adequate Cardiopulmonary Status: Stable Mental Status/LOC: patient returned to baseline Follow-up Care/Observations: 0 Post-Anesthesia Complications: 0 Follow-up care needed: N/A Oliverio Lloyd MD Sep 08, 2016 07:55
--- NOTE | 2016-09-08 08:07 | Urology Progress Note ---
Assessment/Plan Assessment/Plan 1. Urinary retention. 2. Probable atonic bladder. 3. Hematuria. araya indwelling for cysto and urethral calibration today I will start with Dr. Strong to follow pt's questions answered risks etc consent obtained d/w 'maximo Strong and Clayton Subjective Allergies: Coded Allergies: No Known Allergies (Unverified , 09/05/16) Subjective all noted, for cysto today, pt seen earlier this morning prior to surgery Objective Last 24 Hour Vital Signs Date Time Temp Pulse Resp B/P Pulse Ox O2 Delivery O2 Flow Rate FiO2 09/08/16 07:55 61 16 96 09/08/16 04:00 98.1 61 18 116/87 96 Room Air 09/08/16 04:00 16 09/08/16 00:00 97.7 70 18 110/83 98 Room Air 09/08/16 00:00 16 09/07/16 20:00 16 09/07/16 20:00 98.1 83 18 98/78 97 Room Air 09/07/16 16:00 97.9 85 19 101/60 96 Room Air 09/07/16 12:00 97.9 70 18 106/65 99 Room Air 09/07/16 12:00 20 Intake and Output 09/07/16 09/08/16 19:00 07:00 Intake Total 840 ml 480 ml Output Total 800 ml Balance 840 ml -320 ml Intake Oral 240 ml 480 ml IV Total 600 ml Output Urine Total 800 ml # Voids 1 # Bowel Movements 1 1 Microbiology Date/Time Source Procedure Growth Status 09/05/16 14:05 Blood Blood Culture - Preliminary NO GROWTH AFTER 24 HOURS Resulted Current Medications Medications (Trade) Dose Ordered Sig/Dylon Route PRN Reason Start Time Stop Time Status Last Admin Dose Admin Acetaminophen (Tylenol) 650 mg Q4H PRN ORAL FEVER 09/08/16 07:15 10/08/16 07:14 UNV Al Hydroxide/Mg Hydroxide (Mylanta II) 30 ml Q6H PRN ORAL dyspepsia 09/05/16 16:00 10/05/16 15:59 Bisacodyl (Dulcolax) 10 mg HSPRN PRN RECTAL Constipation 3RD LINE AGENT 09/05/16 16:00 10/05/16 15:59 Cefazolin Sodium/ Dextrose (Ancef/D5W) 55 ml @ 110 mls/hr Q8HR IVPB 09/05/16 22:00 09/12/16 21:59 09/08/16 05:17 Dextrose STAT PRN IV Hypoglycemia 09/05/16 16:00 10/05/16 15:59 Dextrose/Sodium Chloride (D5ns) 1,000 ml @ 50 mls/hr Q20H IV 09/05/16 17:00 10/05/16 16:59 09/07/16 21:15 Diphenhydramine HCl (Benadryl) 25 mg Q6H PRN ORAL Itching/Pruritis 09/05/16 16:00 10/05/16 15:59 Docusate Sodium (Colace) 100 mg EVERY 12 HOURS ORAL 09/05/16 21:00 10/05/16 20:59 09/07/16 21:15 Heparin Sodium (Porcine) (Heparin 5000 units/ml) 5,000 units EVERY 12 HOURS SUBQ 09/08/16 09:00 10/08/16 08:59 UNV Hydromorphone HCl (Dilaudid) 2 mg Q3H PRN SUBQ Severe Pain (Pain Scale 7-10) 09/06/16 15:00 09/08/16 14:59 Hydromorphone HCl (Dilaudid) 2 mg Q4H PRN IVP Moderate Pain (Pain Scale 4-6) 09/06/16 15:00 09/08/16 14:59 Hydromorphone HCl (EDIPHONE OPERATOR Dilaudid) 30 ml @ 0 mls/hr Q24H PRN IV For Pain 09/06/16 15:00 09/08/16 14:59 09/07/16 14:23 Lactobacillus Acidophilus (Culturelle) 1 tab TWICE A DAY ORAL 09/05/16 18:00 10/05/16 17:59 09/07/16 08:24 Lorazepam (Ativan 2mg/ml 1ml) 0.5 mg Q4H PRN IV For Anxiety 09/05/16 16:00 09/12/16 15:59 Magnesium Hydroxide (Mom) 30 ml HSPRN PRN ORAL Constipation 2ND LINE AGENT 09/05/16 16:00 10/05/16 15:59 Metoclopramide HCl 10 mg 10 mg Q6H PRN IVP Nausea & Vomiting 09/06/16 13:30 10/06/16 13:29 09/06/16 19:51 Miscellaneous Medication (EDIPHONE OPERATOR Rate Change) 1 ea DAILY PRN MISC rate change 09/06/16 15:00 09/08/16 14:59 Miscellaneous Medication (EDIPHONE OPERATOR Rate Change) 1 ea DAILY PRN MISC rate change 09/08/16 07:15 09/10/16 07:14 UNV Miscellaneous Medication (EDIPHONE OPERATOR shift volume) 1 ea Q12HR@0700,1900 MISC 09/06/16 19:00 09/08/16 18:59 09/07/16 19:00 Miscellaneous Medication (EDIPHONE OPERATOR shift volume) 1 ea Q12HR@0700,1900 MISC 09/08/16 19:00 09/10/16 18:59 UNV Naloxone HCl (Narcan) 0.1 mg PRN IV . 09/06/16 15:00 09/08/16 14:59 Ondansetron HCl (Zofran) 4 mg Q6H PRN IVP Nausea & Vomiting 09/08/16 07:15 10/08/16 07:14 UNV Polyethylene Glycol (Miralax) 17 gm HSPRN PRN ORAL Constipation FIRST LINE AGENT 09/05/16 16:00 10/05/16 15:59 09/07/16 21:18 Zolpidem Tartrate (Ambien) 5 mg DAILYPRN PRN ORAL Insomnia 09/08/16 07:15 10/08/16 07:14 UNV Height (Feet): 5 Height (Inches): 4.50 Weight (Pounds): 138 Objective exam stable, urine is grossly yellow BAMSHADKEYLA Sep 08, 2016 08:07
--- NOTE | 2016-09-08 08:08 | Brief Operative Note ---
Immediate Post Operative Note Operative Note Pre-op Diagnosis: urinary retention, hematuria Procedure: cystoscopy, urethral dilation Post-op Diagnosis: same as pre-op Findings: other - urethral stenosis, bladder trigonitis Surgeon: shu Anesthesiologist: hazel Anesthesia: general Specimen: none Complications: none Condition: stable Estimated Blood Loss: none Drains: other - 18f araya KEYLA KELLEY Sep 08, 2016 08:08
[2016-09-08] MEDS: Docusate 100mg tablet ORAL SCH ×2 (08:10→22:06)
[2016-09-08] MEDS: Lactobacillus-GG tablet ORAL SCH ×2 (08:10→17:19)
--- NOTE | 2016-09-08 08:14 | Anethesia Preoperative Eval ---
Anesthesia Pre-op PMH/ROS General Date of Evaluation: Sep 08, 2016 Time of Evaluation: 06:56 Anesthesiologist: Clayton ASA Score: ASA 2 Mallampati Score Class I : Soft palate, uvula, fauces, pillars visible Class II: Soft palate, uvula, fauces visible Class III: Soft palate, base of uvula visible Class IV: Only hard plate visible Mallampati Classification: Class II Surgeon: Ligia Diagnosis: Recurrent HS Surgical Procedure: Revision and closure of bilateral groin wounds Anesthesia History: PONV Family History: no anesthesia problems Allergies: Coded Allergies: No Known Allergies (Unverified , 09/05/16) Medications: see eMAR Past Medical History Cardiovascular: Denies: CAD, HTN, [place], arrhythmia, other, valve dz Pulmonary: Denies: COPD, ED, asthma, other Gastrointestinal/Genitourinary: Reports: GERD - mild, Denies: CRI, ESRD, other Neurologic/Psychiatric: Denies: CVA, TIA, dementia, depression/anxiety, other Endocrine: Denies: DM, hypothyroidism, other, steroids HEENT: Denies: DOUGLAS (L), DOUGLAS (R), cataract (L), cataract (R), glaucoma, other Hematology/Immune: Reports: anemia - mild, Denies: DVT, bleeding disorder, other Musculoskeletal/Integumentary: Reports: other - recurrent HS, Denies: DDD, DJD, OA, RA, edema PMH Narrative: as above PSxH Narrative: Abdominoplasty, hysterectomy Anesthesia Pre-op Phys. Exam Physician Exam Last Vital Signs Date Time Temp Pulse Resp B/P Pulse Ox O2 Delivery O2 Flow Rate FiO2 09/08/16 07:55 61 16 96 09/08/16 04:00 98.1 116/87 Room Air 09/07/16 04:00 2.0 Constitutional: NAD Neurologic: CN 2-12 intact Cardiovascular: RRR, no M/R/G Respiratory: CTA Gastrointestinal: S/NT/ND Airway Exam Mallampati Score: Class II MO: full Neck: flexible ROM: full Teeth: intact Dentures: no lower, no upper Anesthesia Pre-op A/P Labs see chart Risk Assessment & Plan Assessment: ASA 2 Plan: TIVA with propofol drip BIS monitoring and PONV prevention ETT for airway management. Status Change Before Surgery: No Pre-Antibiotics Drug: Ancef 1gr. Given Within 1 Hr of Incision: Yes Time Given: 07:08 AMANDA VILLA M.D. Sep 08, 2016 08:14
[2016-09-08] MEDS ORDERED: LR 1000ml 1,000 ML IVLG SCH (08:15)
[2016-09-08] MEDS ORDERED: DiphenhydrAMINE 50mg/ml Inj IVP PRN (08:15)
[2016-09-08] MEDS ORDERED: Hydromorphone 0.5mg/0.5ml inj IVP PRN (08:15)
[2016-09-08] MEDS ORDERED: Metoclopramide 10mg/2ml Inj IVP PRN (08:15)
[2016-09-08] MEDS ORDERED: Ketorolac 30mg Inj IV PRN (08:15)
[2016-09-08] MEDS ORDERED: Meperidine 25mg/0.5ml Inj IV PRN (08:15)
[2016-09-08] MEDS ORDERED: Midazolam 2mg/2ml Inj IVP PRN (08:15)
--- NOTE | 2016-09-08 09:29 | Immediate Post-Op Evaluation ---
Immediate Post-Op Evalulation Immediate Post-Op Evalulation Procedure: Cysto. Revision and closure of bilateral groin wounds Date of Evaluation: Sep 08, 2016 Time of Evaluation: 09:28 IV Fluids: 1100 Blood Products: none Estimated Blood Loss: min Urinary Output: 500 Blood Pressure Systolic: 142 Blood Pressure Diastolic: 86 Pulse Rate: 81 Respiratory Rate: 20 O2 Sat by Pulse Oximetry: 99 Temperature (Fahrenheit): 97.8 Pain Score (1-10): 1 Nausea: No Vomiting: No Complications none Patient Status: reacts, patent, extubated, none Hydration Status: adequate AMANDA VILLA M.D. Sep 08, 2016 09:29
[2016-09-08] MEDS: PCA HYDROmorphone 1mg/ml 30 ML IV PRN (12:25)
[2016-09-08] MEDS: D5NS 1,000 ML IV SCH (12:26)
--- NOTE | 2016-09-08 14:19 | 48 Hour Post Anesthesia Eval ---
Post Anesthesia Evaluation Procedure: Cysto. Revision and closure of bilateral groin wounds Date of Evaluation: Sep 08, 2016 Time of Evaluation: 14:21 Blood Pressure Systolic: 117 0: 67 Pulse Rate: 72 Respiratory Rate: 18 Temperature (Fahrenheit): 98.4 O2 Sat by Pulse Oximetry: 99 Airway: patent Nausea: No Vomiting: No Pain Intensity: 2 Hydration Status: adequate Cardiopulmonary Status: Stable Mental Status/LOC: patient returned to baseline Follow-up Care/Observations: 0 Post-Anesthesia Complications: 0 Follow-up care needed: N/A Oliverio Lloyd MD Sep 08, 2016 14:19
--- NOTE | 2016-09-08 15:11 | General Progress Note ---
Assessment/Plan Problem List: (1) Groin abscess Assessment & Plan: s/p wound surgery, I+D and wound closure f/u blood cx Cont IV abx Pain control Supp care Plastic surgery consult A total of 31mins of time was spent with this patient on coordination of care and counseling in addition to the face to face time. ICD Codes: L02.214 - Cutaneous abscess of groin SNOMED: 71656161 Subjective Date patient seen: Sep 08, 2016 Time patient seen: 15:10 Allergies: Coded Allergies: No Known Allergies (Unverified , 09/05/16) Subjective POD#2 for wound surgery, no chest pain or dyspena. No n/v today, pain well controlled. Objective Last 24 Hour Vital Signs Date Time Temp Pulse Resp B/P Pulse Ox O2 Delivery O2 Flow Rate FiO2 09/08/16 14:24 72 18 99 09/08/16 14:00 13 09/08/16 13:30 14 09/08/16 13:15 14 09/08/16 13:00 14 09/08/16 12:45 14 09/08/16 12:29 14 09/08/16 11:39 97.0 59 18 115/72 98 Nasal Cannula 3.0 09/08/16 10:40 97.9 09/08/16 10:29 97.9 60 14 121/81 100 Nasal Cannula 3.0 09/08/16 10:26 97.9 09/08/16 10:16 97.9 09/08/16 10:14 60 13 141/96 100 Nasal Cannula 3.0 09/08/16 10:00 60 18 138/84 100 Nasal Cannula 3.0 09/08/16 09:45 80 15 154/94 100 Nasal Cannula 3.0 09/08/16 09:35 61 23 150/98 100 Nasal Cannula 3.0 09/08/16 09:29 81 20 99 09/08/16 09:26 78 21 151/99 100 Simple Mask 6.0 09/08/16 09:21 81 24 152/100 100 Simple Mask 6.0 09/08/16 09:16 97.8 92 25 140/96 100 Simple Mask 6.0 09/08/16 07:55 61 16 96 09/08/16 04:00 98.1 61 18 116/87 96 Room Air 09/08/16 04:00 16 09/08/16 00:00 97.7 70 18 110/83 98 Room Air 09/08/16 00:00 16 09/07/16 20:00 16 09/07/16 20:00 98.1 83 18 98/78 97 Room Air 09/07/16 16:00 97.9 85 19 101/60 96 Room Air Intake and Output 09/07/16 09/08/16 19:00 07:00 Intake Total 840 ml 480 ml Output Total 800 ml Balance 840 ml -320 ml Intake Oral 240 ml 480 ml IV Total 600 ml Output Urine Total 800 ml # Voids 1 # Bowel Movements 1 1 Height (Feet): 5 Height (Inches): 4.50 Weight (Pounds): 138 Objective General: alert, cooperative, no distress, appears stated age Head: normocephalic, without obvious abnormality, atraumatic Eyes: conjunctivae/corneas clear. PERRL, EOM's intact Throat: lips, mucosa, and tongue normal. MMM Neck: supple, symmetrical, trachea midline, and no JVD Lungs: clear to auscultation bilaterally Heart: regular rate and rhythm, S1, S2 normal, no murmur, click, rub or gallop Abdomen: soft, non-tender, non-distended, bowel sounds normal; no masses or organomegaly Extremities: extremities normal, atraumatic, no cyanosis or edema Pulses: 2+ and symmetric Skin: skin color, texture, turgor normal; no rashes or lesions Neurologic: grossly normal, no focal deficits KENDRICK WILDER Sep 08, 2016 15:11
[2016-09-08] MEDS ORDERED: PCA shift volume MISC SCH (19:00)
--- NOTE | 2016-09-08 19:38 | Operative Note - Dictated ---
DATE OF OPERATION: 09/08/2016 PREOPERATIVE DIAGNOSIS: Open right groin labial wound plus open left buttock wound. POSTOPERATIVE DIAGNOSIS: Open right groin labial wound plus open left buttock wound. PROCEDURES: 1. Preparation of left buttock wound for closure. 2. Complex closure of left buttock wound. 3. Preparation of right groin wound for closure. 4. Re-advancement of medial thigh flap for closure of right groin wound. 5. Elevation of a posterior buttock flap for closure of right groin and thigh wound. SURGEON: Gudelia Strong M.D. BARREL ASSEMBLER HELPER: Nathan Massey M.D. ANESTHESIA: General. ESTIMATED BLOOD LOSS: Minimal. DRAINS: One HEIDI. SPECIMEN: None. DISPOSITION: Stable to the recovery room. INDICATIONS FOR SURGERY: This is a 50-year-old female, who is now 48 hours postoperative from radical debridement and excision of a right groin tissue as well as left buttock abscess debridement, who has been on IV antibiotics and dressing changes since that time and is now ready for definitive closure of her wounds. She understands the risks and benefits of surgery and agrees to proceed. DETAILS OF THE OPERATION: The patient was brought to the operating room and laid in the lithotomy position on the operating table. We first began by debriding the left buttock wound, getting it down to healthy bleeding tissue and then once debridement was completed and the wound was ready for closure, the complex closure was pursued using 0 and 2-0 Vicryl sutures and a 2-0 Prolene was used for the skin. We then turned our attention to the right groin wound. The right groin was debrided of some of the nonviable tissue at the base and the edges of the wound and on completion of this for base of the wound was done and we performed a re-advancement of the medial thigh flap by releasing some of the attachments of the flap distally to further mobilize it and we noted that despite this giving us more tissue to close, we needed elevation of further tissue to allow for a tension-free repair. As such, a posterior buttock and thigh flap to be elevated based off of perforators with inferior gluteal artery. The flap was elevated in the fasciocutaneous level with proximal and distal incisions made to fully mobilize the flap. Once the two flaps were fully mobile, the wound was then irrigated with pulse lavage and a HEIDI drain was placed and secured in position with 3-0 nylon sutures and the flaps were then reapproximated using #0 and 2-0 Vicryl sutures and the skin was closed with interrupted 2-0 Prolene vertical mattress sutures. Dermabond was applied to this and the buttock incisions and dressings were applied. The patient tolerated the procedure well. No known complications. Gudelia Strong M.D. DR: JYOTI JOB#: [id number] CC: BRANDEE
[2016-09-08] MEDS ORDERED: Zolpidem 5mg tab ORAL PRN (21:00)
[2016-09-08] MEDS: Heparin 5000 units/ml inj SUBQ SCH (22:09)
[2016-09-08] MEDS: Miralax 17gm pkt ORAL PRN (22:19)
[2016-09-08] MEDS ORDERED: Tubing IV Secondary IV ONE (22:45)
[2016-09-08] MEDS ORDERED: D5NS 1000ml IV ONE (22:45)
[2016-09-09] VITALS: BP 115/70
--- NOTE | 2016-09-09 00:48 | Operative Note - Dictated ---
PREOPERATIVE DIAGNOSES: Urinary retention and microhematuria. POSTOPERATIVE DIAGNOSES: Urinary retention and microhematuria. PROCEDURE PERFORMED: Cystoscopy, urethral dilation. SURGEON: Saroj Caldwell M.D. ANESTHESIOLOGIST: Kris Arnold M.D. ANESTHESIA: General. INDICATION FOR PROCEDURE: The patient is a pleasant 50-year-old female, she has a history of hidradenitis of the genital area. She had excision of the above by Dr. Strong two days ago. Apparently, there was some difficulty with placement of the Mata catheter by the nursing staff and I had to place the Mata on an urgent basis for urinary retention. She had some meatal stenosis. The patient is being brought back to the operating room for closure of the wound by Dr. Strong and a decision was made to do diagnostic cystoscopy and dilation at the same time. She also did have a UA at the time of admission, which showed microhematuria. The nature of the procedure was discussed with the patient. Possible risks and complications of bleeding, infection, anesthesia, damage to the urethra, bladder or need for further surgery were discussed. No guarantees were given or implied. FINDINGS: The patient had a very stenotic meatus. She did have bladder trigonitis. PROCEDURE IN DETAIL: After informed consent was obtained from the patient, the patient was brought to the operating room, and placed in the supine position. General anesthesia was induced. The patient's genital area was then prepped and draped in the usual sterile fashion. The patient had been on preoperative intravenous antibiotics. Time-out was performed. At this point, cystoscopy was then performed. The meatus appeared to be very stenotic and inflamed. I inspected the bladder carefully, I did not see any tumors. She did have hidradenitis but no other visible lesions. At this point, the cystoscope was removed. The urethra was then gently dilated to 28-Kiswahili. An 18-Kiswahili Mata catheter was then placed and the patient needs to be re-prepped for Dr. Strong's portion of the operation. We will plan for a voiding trial in the near future. Blood loss was none. No complication. Saroj Caldwell M.D. DR: BRODIE JOB#: [id number] CC: Gudelia Strong M.D.; Fax#: [phone] Chun M.D. ; Fax#: [phone]
[2016-09-09 04:07] VITALS: BP 106/66
[2016-09-09] MEDS: ceFAZolin sod 1 GM in D5W 55 ML IVPB SCH ×3 (06:05→21:02)
[2016-09-09] MEDS: D5NS 1,000 ML IV SCH (06:06)
[2016-09-09] MEDS: PCA shift volume MISC SCH ×2 (07:00→19:05)
[2016-09-09 08:00] VITALS: BP 117/67
[2016-09-09] MEDS: Lactobacillus-GG tablet ORAL SCH ×2 (08:39→17:27)
[2016-09-09] MEDS: Docusate 100mg tablet ORAL SCH ×2 (08:39→20:56)
[2016-09-09] MEDS: Heparin 5000 units/ml inj SUBQ SCH ×2 (08:44→21:09)
--- NOTE | 2016-09-09 10:18 | General Progress Note ---
Progress Note Progress Note Pt seen and examined. POD # 1 from closure of wounds. Doing well and pain is well controlled. Take down dressings on Sunday. Continue abx and pain meds. MD MAGI Rodríguez AMIR Sep 09, 2016 10:18
--- NOTE | 2016-09-09 10:20 | Urology Progress Note ---
Assessment/Plan Assessment/Plan 1. Urinary retention. 2. Probable atonic bladder. 3. Hematuria. 4. POD # 1, cysto araya indwelling plan voiding trial sunday Subjective Allergies: Coded Allergies: No Known Allergies (Unverified , 09/05/16) Subjective feels fair Objective Last 24 Hour Vital Signs Date Time Temp Pulse Resp B/P Pulse Ox O2 Delivery O2 Flow Rate FiO2 09/09/16 08:00 98.2 100 20 117/67 96 Room Air 09/09/16 08:00 18 09/09/16 04:07 97.7 80 18 106/66 97 Nasal Cannula 09/09/16 04:00 18 09/09/16 00:00 18 09/09/16 00:00 98.6 70 18 115/70 99 Nasal Cannula 09/08/16 20:00 98.1 73 20 93/55 97 Room Air 09/08/16 20:00 18 09/08/16 17:15 13 09/08/16 16:51 97.9 67 19 107/70 99 Nasal Cannula 09/08/16 14:24 72 18 99 09/08/16 14:00 13 09/08/16 13:30 14 09/08/16 13:15 14 09/08/16 13:00 14 09/08/16 12:45 14 09/08/16 12:29 14 09/08/16 11:39 97.0 59 18 115/72 98 Nasal Cannula 3.0 09/08/16 10:40 97.9 09/08/16 10:29 97.9 60 14 121/81 100 Nasal Cannula 3.0 09/08/16 10:26 97.9 Intake and Output 09/08/16 09/09/16 18:59 06:59 Intake Total 1555 ml 810 ml Output Total 2065 ml 1800 ml Balance -510 ml -990 ml Intake Oral 360 ml IV Total 1555 ml 450 ml Output Urine Total 2000 ml 1800 ml Drainage Total 45 ml Estimated Blood Loss 20 ml # Voids 2 # Bowel Movements 1 Microbiology Date/Time Source Procedure Growth Status 09/05/16 14:05 Blood Blood Culture - Preliminary NO GROWTH AFTER 72 HOURS Resulted Current Medications Medications (Trade) Dose Ordered Sig/Dylon Route PRN Reason Start Time Stop Time Status Last Admin Dose Admin Acetaminophen 650 mg 650 mg Q4H PRN ORAL T>100.5 09/08/16 11:00 5/21/17 10:59 Al Hydroxide/Mg Hydroxide (Mylanta II) 30 ml Q6H PRN ORAL dyspepsia 09/05/16 16:00 10/05/16 15:59 Bisacodyl (Dulcolax) 10 mg HSPRN PRN RECTAL Constipation 3RD LINE AGENT 09/05/16 16:00 10/05/16 15:59 Cefazolin Sodium/ Dextrose (Ancef/D5W) 55 ml @ 110 mls/hr Q8HR IVPB 09/05/16 22:00 09/12/16 21:59 09/09/16 06:05 Dextrose STAT PRN IV Hypoglycemia 09/05/16 16:00 10/05/16 15:59 Dextrose/Sodium Chloride (D5ns) 1,000 ml @ 50 mls/hr Q20H IV 09/05/16 17:00 10/05/16 16:59 09/09/16 06:06 Diphenhydramine HCl (Benadryl) 25 mg Q6H PRN ORAL Itching/Pruritis 09/05/16 16:00 10/05/16 15:59 Docusate Sodium (Colace) 100 mg EVERY 12 HOURS ORAL 09/05/16 21:00 10/05/16 20:59 09/09/16 08:39 Heparin Sodium (Porcine) (Heparin 5000 units/ml) 5,000 units EVERY 12 HOURS SUBQ 09/08/16 21:00 10/08/16 20:59 09/09/16 08:44 Hydromorphone HCl (Dilaudid) 2 mg Q3H PRN SUBQ Severe Pain (Pain Scale 7-10) 09/08/16 12:00 09/10/16 11:59 Hydromorphone HCl (Dilaudid) 2 mg Q4H PRN IVP Moderate Pain (Pain Scale 4-6) 09/08/16 12:00 09/10/16 11:59 Hydromorphone HCl (EDITORIAL MANAGER Dilaudid) 30 ml @ 0 mls/hr Q24H PRN IV For Pain 09/08/16 12:00 09/10/16 11:59 09/08/16 12:25 Lactobacillus Acidophilus (Culturelle) 1 tab TWICE A DAY ORAL 09/05/16 18:00 10/05/16 17:59 09/09/16 08:39 Lorazepam (Ativan 2mg/ml 1ml) 0.5 mg Q4H PRN IV For Anxiety 09/05/16 16:00 09/12/16 15:59 Magnesium Hydroxide (Mom) 30 ml HSPRN PRN ORAL Constipation 2ND LINE AGENT 09/05/16 16:00 10/05/16 15:59 Metoclopramide HCl (Reglan) 10 mg Q6H PRN IVP Nausea & Vomiting 09/06/16 13:30 10/06/16 13:29 09/06/16 19:51 Miscellaneous Medication (EDITORIAL MANAGER Rate Change) 1 ea DAILY PRN MISC rate change 09/08/16 11:15 09/10/16 11:14 Miscellaneous Medication (EDITORIAL MANAGER shift volume) 1 ea Q12HR@0700,1900 MISC 09/08/16 19:00 09/10/16 18:59 09/09/16 07:00 Naloxone HCl (Narcan) 0.1 mg PRN IV . 09/06/16 15:00 09/10/16 14:59 Ondansetron HCl (Zofran) 4 mg Q6H PRN IVP Nausea & Vomiting 09/08/16 11:00 10/08/16 10:59 Polyethylene Glycol (Miralax) 17 gm HSPRN PRN ORAL Constipation FIRST LINE AGENT 09/05/16 16:00 10/05/16 15:59 09/08/16 22:19 Zolpidem Tartrate (Ambien) 5 mg HSPRN PRN ORAL Insomnia 09/08/16 21:00 10/08/16 20:59 Height (Feet): 5 Height (Inches): 4.50 Weight (Pounds): 138 Objective exam stable, urine is grossly yellow BAMSHADKEYLA Sep 09, 2016 10:20
[2016-09-09 12:00] VITALS: BP 117/79
[2016-09-09] MEDS: PCA HYDROmorphone 1mg/ml 30 ML IV PRN (12:36)
--- NOTE | 2016-09-09 12:55 | General Progress Note ---
Assessment/Plan Problem List: (1) Groin abscess Assessment & Plan: s/p wound surgery, I+D and wound closure f/u blood cx Cont IV abx Pain control Supp care Plastic surgery consult A total of 31mins of time was spent with this patient on coordination of care and counseling in addition to the face to face time. ICD Codes: L02.214 - Cutaneous abscess of groin SNOMED: 76109274 Subjective Date patient seen: Sep 09, 2016 Time patient seen: 12:55 ROS Limited/Unobtainable: No Allergies: Coded Allergies: No Known Allergies (Unverified , 09/05/16) Subjective POD#3 for wound surgery, no chest pain or dyspnea. No n/v today, pain well controlled. Objective Last 24 Hour Vital Signs Date Time Temp Pulse Resp B/P Pulse Ox O2 Delivery O2 Flow Rate FiO2 09/09/16 12:36 18 09/09/16 12:01 18 09/09/16 12:00 97.5 84 19 117/79 98 Room Air 09/09/16 08:00 98.2 100 20 117/67 96 Room Air 09/09/16 08:00 18 09/09/16 04:07 97.7 80 18 106/66 97 Nasal Cannula 09/09/16 04:00 18 09/09/16 00:00 18 09/09/16 00:00 98.6 70 18 115/70 99 Nasal Cannula 09/08/16 20:00 98.1 73 20 93/55 97 Room Air 09/08/16 20:00 18 09/08/16 17:15 13 09/08/16 16:51 97.9 67 19 107/70 99 Nasal Cannula 09/08/16 14:24 72 18 99 09/08/16 14:00 13 09/08/16 13:30 14 09/08/16 13:15 14 09/08/16 13:00 14 Intake and Output 09/08/16 09/09/16 19:00 07:00 Intake Total 1605 ml 810 ml Output Total 2065 ml 1800 ml Balance -460 ml -990 ml Intake Oral 360 ml IV Total 1605 ml 450 ml Output Urine Total 2000 ml 1800 ml Drainage Total 45 ml Estimated Blood Loss 20 ml # Voids 2 # Bowel Movements 1 Height (Feet): 5 Height (Inches): 4.50 Weight (Pounds): 138 Objective General: alert, cooperative, no distress, appears stated age Head: normocephalic, without obvious abnormality, atraumatic Eyes: conjunctivae/corneas clear. PERRL, EOM's intact Throat: lips, mucosa, and tongue normal. MMM Neck: supple, symmetrical, trachea midline, and no JVD Lungs: clear to auscultation bilaterally Heart: regular rate and rhythm, S1, S2 normal, no murmur, click, rub or gallop Abdomen: soft, non-tender, non-distended, bowel sounds normal; no masses or organomegaly Extremities: extremities normal, atraumatic, no cyanosis or edema Pulses: 2+ and symmetric Skin: skin color, texture, turgor normal; no rashes or lesions Neurologic: grossly normal, no focal deficits KENDRICK WILDER Sep 09, 2016 12:55
[2016-09-09] MEDS: Miralax 17gm pkt ORAL PRN (14:07)
[2016-09-09 16:00] VITALS: BP 110/70
[2016-09-09 20:00] VITALS: BP 120/76
[2016-09-10] MEDS: D5NS 1,000 ML IV SCH (03:58)
[2016-09-10 04:00] VITALS: BP 111/65
[2016-09-10] MEDS: ceFAZolin sod 1 GM in D5W 55 ML IVPB SCH ×3 (05:20→20:53)
[2016-09-10] MEDS: PCA shift volume MISC SCH ×2 (07:05→19:03)
[2016-09-10 07:58] VITALS: BP 111/72
[2016-09-10] MEDS ORDERED: Naloxone 0.4mg/ml Inj IV PRN ×3 (08:00→12:00)
[2016-09-10] MEDS: Lactobacillus-GG tablet ORAL SCH ×2 (08:49→17:37)
[2016-09-10] MEDS: Docusate 100mg tablet ORAL SCH ×2 (08:49→20:52)
[2016-09-10] MEDS: Heparin 5000 units/ml inj SUBQ SCH ×2 (08:57→20:55)
--- NOTE | 2016-09-10 10:13 | Urology Progress Note ---
Assessment/Plan Assessment/Plan 1. Urinary retention. 2. Probable atonic bladder. 3. Hematuria. 4. POD # 2, cysto araya indwelling plan voiding trial in am Subjective Allergies: Coded Allergies: No Known Allergies (Unverified , 09/05/16) Subjective feels fair Objective Last 24 Hour Vital Signs Date Time Temp Pulse Resp B/P Pulse Ox O2 Delivery O2 Flow Rate FiO2 09/10/16 08:00 18 09/10/16 07:58 98.8 74 19 111/72 100 Room Air 09/10/16 04:00 98.6 86 18 111/65 96 Room Air 09/10/16 04:00 18 09/10/16 00:00 18 09/09/16 20:00 20 09/09/16 20:00 97.7 97 20 120/76 97 Room Air 09/09/16 17:32 98.1 09/09/16 16:00 98.1 83 19 110/70 97 Room Air 09/09/16 16:00 20 09/09/16 13:06 98.2 09/09/16 12:36 18 09/09/16 12:01 18 09/09/16 12:00 97.5 84 19 117/79 98 Room Air Intake and Output 09/09/16 09/10/16 19:00 07:00 Intake Total 1205 ml 900 ml Output Total 1670 ml 1487 ml Balance -465 ml -587 ml Intake Oral 650 ml 300 ml IV Total 555 ml 600 ml Output Urine Total 1650 ml 1475 ml Drainage Total 20 ml 12 ml # Bowel Movements 2 Microbiology Date/Time Source Procedure Growth Status 09/05/16 14:05 Blood Blood Culture - Preliminary NO GROWTH AFTER 4 DAYS Resulted Current Medications Medications (Trade) Dose Ordered Sig/Dylon Route PRN Reason Start Time Stop Time Status Last Admin Dose Admin Acetaminophen 650 mg 650 mg Q4H PRN ORAL T>100.5 09/08/16 11:00 10/08/16 10:59 Al Hydroxide/Mg Hydroxide (Mylanta II) 30 ml Q6H PRN ORAL dyspepsia 09/05/16 16:00 10/05/16 15:59 Bisacodyl (Dulcolax) 10 mg HSPRN PRN RECTAL Constipation 3RD LINE AGENT 09/05/16 16:00 10/05/16 15:59 Cefazolin Sodium/ Dextrose (Ancef/D5W) 55 ml @ 110 mls/hr Q8HR IVPB 09/05/16 22:00 09/12/16 21:59 09/10/16 05:20 Dextrose STAT PRN IV Hypoglycemia 09/05/16 16:00 10/05/16 15:59 Dextrose/Sodium Chloride (D5ns) 1,000 ml @ 50 mls/hr Q20H IV 09/05/16 17:00 10/05/16 16:59 09/10/16 03:58 Diphenhydramine HCl (Benadryl) 25 mg Q6H PRN ORAL Itching/Pruritis 09/05/16 16:00 10/05/16 15:59 Docusate Sodium (Colace) 100 mg EVERY 12 HOURS ORAL 09/05/16 21:00 10/05/16 20:59 09/10/16 08:49 Heparin Sodium (Porcine) (Heparin 5000 units/ml) 5,000 units EVERY 12 HOURS SUBQ 09/08/16 21:00 10/08/16 20:59 09/10/16 08:57 Hydromorphone HCl (Dilaudid) 2 mg Q3H PRN SUBQ Severe Pain (Pain Scale 7-10) 09/08/16 12:00 09/10/16 11:59 09/09/16 17:02 Hydromorphone HCl (Dilaudid) 2 mg Q4H PRN IVP Moderate Pain (Pain Scale 4-6) 09/08/16 12:00 09/10/16 11:59 Hydromorphone HCl (AUTOMOTIVE ENGINEERING TECHNICIAN Dilaudid) 30 ml @ 0 mls/hr Q24H PRN IV For Pain 09/08/16 12:00 09/10/16 11:59 09/09/16 12:36 Lactobacillus Acidophilus (Culturelle) 1 tab TWICE A DAY ORAL 09/05/16 18:00 10/05/16 17:59 09/10/16 08:49 Lorazepam (Ativan 2mg/ml 1ml) 0.5 mg Q4H PRN IV For Anxiety 09/05/16 16:00 09/12/16 15:59 Magnesium Hydroxide (Mom) 30 ml HSPRN PRN ORAL Constipation 2ND LINE AGENT 09/05/16 16:00 10/05/16 15:59 Metoclopramide HCl (Reglan) 10 mg Q6H PRN IVP Nausea & Vomiting 09/06/16 13:30 10/06/16 13:29 09/06/16 19:51 Miscellaneous Medication (AUTOMOTIVE ENGINEERING TECHNICIAN Rate Change) 1 ea DAILY PRN MISC rate change 09/08/16 11:15 09/10/16 11:14 Miscellaneous Medication (AUTOMOTIVE ENGINEERING TECHNICIAN shift volume) 1 ea Q12HR@0700,1900 MISC 09/08/16 19:00 09/10/16 18:59 09/10/16 07:05 Naloxone HCl (Narcan) 0.1 mg PRN IV . 09/06/16 15:00 09/10/16 14:59 Ondansetron HCl (Zofran) 4 mg Q6H PRN IVP Nausea & Vomiting 09/08/16 11:00 10/08/16 10:59 Polyethylene Glycol (Miralax) 17 gm HSPRN PRN ORAL Constipation FIRST LINE AGENT 09/05/16 16:00 10/05/16 15:59 09/09/16 14:07 Zolpidem Tartrate (Ambien) 5 mg HSPRN PRN ORAL Insomnia 09/08/16 21:00 10/08/16 20:59 Height (Feet): 5 Height (Inches): 4.50 Weight (Pounds): 138 Objective exam stable, urine is grossly yellow BAMSHADKEYLA Sep 10, 2016 10:13
[2016-09-10] MEDS: Miralax 17gm pkt ORAL PRN (11:54)
[2016-09-10 12:00] VITALS: BP 120/44
[2016-09-10] MEDS ORDERED: LORazepam Inj 2mg/ml 1ml IV PRN (12:00)
[2016-09-10] MEDS: PCA HYDROmorphone 1mg/ml 30 ML IV PRN (13:01)
--- NOTE | 2016-09-10 13:40 | General Progress Note ---
Assessment/Plan Problem List: (1) Groin abscess Assessment & Plan: s/p wound surgery, I+D and wound closure f/u blood cx Cont IV abx Pain control Supp care Plastic surgery consult A total of 31mins of time was spent with this patient on coordination of care and counseling in addition to the face to face time. ICD Codes: L02.214 - Cutaneous abscess of groin SNOMED: 37219047 Subjective Date patient seen: Sep 10, 2016 Time patient seen: 13:39 ROS Limited/Unobtainable: No Allergies: Coded Allergies: No Known Allergies (Unverified , 09/05/16) Subjective POD#4 for wound surgery, no chest pain or dyspnea. No n/v today, pain well controlled. Objective Last 24 Hour Vital Signs Date Time Temp Pulse Resp B/P Pulse Ox O2 Delivery O2 Flow Rate FiO2 09/10/16 13:31 98.6 09/10/16 13:02 20 09/10/16 13:01 20 09/10/16 12:00 98.6 74 20 120/44 99 Room Air 09/10/16 12:00 18 09/10/16 08:00 18 09/10/16 07:58 98.8 74 19 111/72 100 Room Air 09/10/16 04:00 98.6 86 18 111/65 96 Room Air 09/10/16 04:00 18 09/10/16 00:00 18 09/09/16 20:00 20 09/09/16 20:00 97.7 97 20 120/76 97 Room Air 09/09/16 17:32 98.1 09/09/16 16:00 98.1 83 19 110/70 97 Room Air 09/09/16 16:00 20 Intake and Output 09/09/16 09/10/16 19:00 07:00 Intake Total 1205 ml 900 ml Output Total 1670 ml 1487 ml Balance -465 ml -587 ml Intake Oral 650 ml 300 ml IV Total 555 ml 600 ml Output Urine Total 1650 ml 1475 ml Drainage Total 20 ml 12 ml # Bowel Movements 2 Height (Feet): 5 Height (Inches): 4.50 Weight (Pounds): 138 Objective General: alert, cooperative, no distress, appears stated age Head: normocephalic, without obvious abnormality, atraumatic Eyes: conjunctivae/corneas clear. PERRL, EOM's intact Throat: lips, mucosa, and tongue normal. MMM Neck: supple, symmetrical, trachea midline, and no JVD Lungs: clear to auscultation bilaterally Heart: regular rate and rhythm, S1, S2 normal, no murmur, click, rub or gallop Abdomen: soft, non-tender, non-distended, bowel sounds normal; no masses or organomegaly Extremities: extremities normal, atraumatic, no cyanosis or edema Pulses: 2+ and symmetric Skin: skin color, texture, turgor normal; no rashes or lesions Neurologic: grossly normal, no focal deficits KENDRICK WILDER Sep 10, 2016 13:40
[2016-09-10] MEDS ORDERED: D5NS 1000ml IV ONE (15:02)
[2016-09-10 16:03] VITALS: BP 109/69
[2016-09-10 20:15] VITALS: BP 114/63
[2016-09-10 23:57] VITALS: BP 124/63
[2016-09-11] MEDS: D5NS 1,000 ML IV SCH (01:36)
[2016-09-11 04:00] VITALS: BP 115/70
[2016-09-11] MEDS: ceFAZolin sod 1 GM in D5W 55 ML IVPB SCH ×3 (06:19→21:36)
[2016-09-11] MEDS: PCA shift volume MISC SCH ×2 (07:02→19:00)
[2016-09-11 08:00] VITALS: BP 127/66
[2016-09-11] MEDS: Docusate 100mg tablet ORAL SCH ×2 (09:05→21:37)
[2016-09-11] MEDS: Lactobacillus-GG tablet ORAL SCH ×2 (09:05→16:38)
[2016-09-11] MEDS: Heparin 5000 units/ml inj SUBQ SCH ×2 (09:06→21:37)
--- NOTE | 2016-09-11 10:39 | Urology Progress Note ---
Assessment/Plan Assessment/Plan 1. Urinary retention. 2. Probable atonic bladder. 3. Hematuria. 4. POD # 3, cysto araya out monitor for voiding Subjective Allergies: Coded Allergies: No Known Allergies (Unverified , 09/05/16) Subjective araya removed early am, voided a bit, feels fair Objective Last 24 Hour Vital Signs Date Time Temp Pulse Resp B/P Pulse Ox O2 Delivery O2 Flow Rate FiO2 09/11/16 08:00 18 09/11/16 08:00 98.1 107 20 127/66 100 Room Air 09/11/16 04:00 18 09/11/16 04:00 98.4 93 19 115/70 100 Room Air 09/11/16 00:15 18 09/10/16 23:57 99.9 83 20 124/63 97 Room Air 09/10/16 20:15 99.7 89 20 114/63 100 Room Air 09/10/16 16:03 96.3 89 20 109/69 97 Room Air 09/10/16 16:00 20 09/10/16 13:31 98.6 09/10/16 13:02 20 09/10/16 13:01 20 09/10/16 12:00 98.6 74 20 120/44 99 Room Air 09/10/16 12:00 18 Intake and Output 09/10/16 09/11/16 19:00 07:00 Intake Total 1820 ml 550 ml Output Total 1210 ml 1510 ml Balance 610 ml -960 ml Intake Oral 1240 ml IV Total 580 ml 550 ml Output Urine Total 1200 ml 1500 ml Drainage Total 10 ml 10 ml Microbiology Date/Time Source Procedure Growth Status 09/05/16 14:05 Blood Blood Culture - Final NO GROWTH AFTER 5 DAYS Complete Current Medications Medications (Trade) Dose Ordered Sig/Dylon Route PRN Reason Start Time Stop Time Status Last Admin Dose Admin Acetaminophen 650 mg 650 mg Q4H PRN ORAL T>100.5 09/08/16 11:00 10/08/16 10:59 Al Hydroxide/Mg Hydroxide (Mylanta II) 30 ml Q6H PRN ORAL dyspepsia 09/05/16 16:00 10/05/16 15:59 Bisacodyl (Dulcolax) 10 mg HSPRN PRN RECTAL Constipation 3RD LINE AGENT 09/05/16 16:00 10/05/16 15:59 Cefazolin Sodium/ Dextrose (Ancef/D5W) 55 ml @ 110 mls/hr Q8HR IVPB 09/05/16 22:00 09/12/16 21:59 09/11/16 06:19 Dextrose STAT PRN IV Hypoglycemia 09/05/16 16:00 10/05/16 15:59 Dextrose/Sodium Chloride (D5ns) 1,000 ml @ 50 mls/hr Q20H IV 09/05/16 17:00 10/05/16 16:59 09/11/16 01:36 Diphenhydramine HCl (Benadryl) 25 mg Q6H PRN ORAL Itching/Pruritis 09/05/16 16:00 10/05/16 15:59 09/10/16 20:52 Docusate Sodium (Colace) 100 mg EVERY 12 HOURS ORAL 09/05/16 21:00 10/05/16 20:59 09/11/16 09:05 Heparin Sodium (Porcine) (Heparin 5000 units/ml) 5,000 units EVERY 12 HOURS SUBQ 09/08/16 21:00 10/08/16 20:59 09/11/16 09:06 Hydromorphone HCl (Dilaudid) 2 mg Q3H PRN SUBQ Severe Pain (Pain Scale 7-10) 09/10/16 12:00 09/12/16 11:59 Hydromorphone HCl (Dilaudid) 2 mg Q4H PRN IVP Moderate Pain (Pain Scale 4-6) 09/10/16 12:00 09/12/16 11:59 Hydromorphone HCl (GLAZE HANDLER Dilaudid) 30 ml @ 0 mls/hr Q24H PRN IV For Pain 09/10/16 12:00 09/12/16 11:59 09/10/16 13:01 Lactobacillus Acidophilus (Culturelle) 1 tab TWICE A DAY ORAL 09/05/16 18:00 10/05/16 17:59 09/11/16 09:05 Lorazepam (Ativan 2mg/ml 1ml) 0.5 mg Q4H PRN IV For Anxiety 09/10/16 12:00 09/12/16 11:59 Magnesium Hydroxide (Mom) 30 ml HSPRN PRN ORAL Constipation 2ND LINE AGENT 09/05/16 16:00 10/05/16 15:59 Metoclopramide HCl (Reglan) 10 mg Q6H PRN IVP Nausea & Vomiting 09/06/16 13:30 10/06/16 13:29 09/06/16 19:51 Miscellaneous Medication (GLAZE HANDLER shift volume) 1 ea Q12HR@0700,1900 MISC 09/10/16 19:00 09/12/16 11:59 09/11/16 07:02 Naloxone HCl (Narcan) 0.1 mg PRN IV . 09/10/16 12:00 09/12/16 11:59 Ondansetron HCl (Zofran) 4 mg Q6H PRN IVP Nausea & Vomiting 09/08/16 11:00 10/08/16 10:59 Polyethylene Glycol (Miralax) 17 gm HSPRN PRN ORAL Constipation FIRST LINE AGENT 09/05/16 16:00 10/05/16 15:59 09/10/16 11:54 Zolpidem Tartrate (Ambien) 5 mg HSPRN PRN ORAL Insomnia 09/08/16 21:00 10/08/16 20:59 Height (Feet): 5 Height (Inches): 4.50 Weight (Pounds): 138 Objective exam stable MARIAELENAJULIETA FITCHAK Sep 11, 2016 10:39
[2016-09-11 12:00] VITALS: BP 102/62
--- NOTE | 2016-09-11 14:35 | General Progress Note ---
Assessment/Plan Problem List: (1) Groin abscess Assessment & Plan: s/p wound surgery, I+D and wound closure f/u blood cx Cont IV abx Pain control Supp care Plastic surgery consult A total of 31mins of time was spent with this patient on coordination of care and counseling in addition to the face to face time. ICD Codes: L02.214 - Cutaneous abscess of groin SNOMED: 96030263 Subjective Date patient seen: Sep 11, 2016 Time patient seen: 14:35 ROS Limited/Unobtainable: No Allergies: Coded Allergies: No Known Allergies (Unverified , 09/05/16) Subjective POD#5 for wound surgery, no chest pain or dyspnea. No n/v today, pain well controlled. Objective Last 24 Hour Vital Signs Date Time Temp Pulse Resp B/P Pulse Ox O2 Delivery O2 Flow Rate FiO2 09/11/16 12:00 98.2 87 18 102/62 94 Room Air 09/11/16 12:00 18 09/11/16 08:00 18 09/11/16 08:00 98.1 107 20 127/66 100 Room Air 09/11/16 04:00 18 09/11/16 04:00 98.4 93 19 115/70 100 Room Air 09/11/16 00:15 18 09/10/16 23:57 99.9 83 20 124/63 97 Room Air 09/10/16 20:15 99.7 89 20 114/63 100 Room Air 09/10/16 16:03 96.3 89 20 109/69 97 Room Air 09/10/16 16:00 20 Intake and Output 09/10/16 09/11/16 19:00 07:00 Intake Total 1820 ml 550 ml Output Total 1210 ml 1510 ml Balance 610 ml -960 ml Intake Oral 1240 ml IV Total 580 ml 550 ml Output Urine Total 1200 ml 1500 ml Drainage Total 10 ml 10 ml Height (Feet): 5 Height (Inches): 4.50 Weight (Pounds): 138 Objective General: alert, cooperative, no distress, appears stated age Head: normocephalic, without obvious abnormality, atraumatic Eyes: conjunctivae/corneas clear. PERRL, EOM's intact Throat: lips, mucosa, and tongue normal. MMM Neck: supple, symmetrical, trachea midline, and no JVD Lungs: clear to auscultation bilaterally Heart: regular rate and rhythm, S1, S2 normal, no murmur, click, rub or gallop Abdomen: soft, non-tender, non-distended, bowel sounds normal; no masses or organomegaly Extremities: extremities normal, atraumatic, no cyanosis or edema Pulses: 2+ and symmetric Skin: skin color, texture, turgor normal; no rashes or lesions Neurologic: grossly normal, no focal deficits KENDRICK WILDER Sep 11, 2016 14:35
[2016-09-11] MEDS: PCA HYDROmorphone 1mg/ml 30 ML IV PRN (15:01)
[2016-09-11 16:00] VITALS: BP 127/74
[2016-09-11 20:00] VITALS: BP 122/77
[2016-09-12] VITALS (13 sets, daily range): BP systolic 96–134; BP diastolic 52–93
[2016-09-12] MEDS: ceFAZolin sod 1 GM in D5W 55 ML IVPB SCH ×2 (06:05→14:00)
[2016-09-12] MEDS: PCA shift volume MISC SCH ×2 (07:05→19:21)
[2016-09-12] MEDS: Heparin 5000 units/ml inj SUBQ SCH ×2 (07:30→21:26)
[2016-09-12] MEDS: Docusate 100mg tablet ORAL SCH ×2 (07:30→21:24)
[2016-09-12] MEDS: Lactobacillus-GG tablet ORAL SCH ×2 (07:30→17:28)
--- NOTE | 2016-09-12 08:13 | General Progress Note ---
Progress Note Progress Note Pt seen and examined. POD # 4 from closure of R groin and left buttuck wounds. Febrile yesterday to 102.3 Tender over the left buttuck incision with drainage. Plan: CBC this AM and to OR later today for drainage of wound abscess. Fabiola SOW,FABIOLA Sep 12, 2016 08:13
[2016-09-12] MEDS ORDERED: Transderm Scop 1.5mg TDERMAL ONE (08:19)
[2016-09-12] MEDS: D5NS 1,000 ML IV SCH ×2 (09:00→15:38)
[2016-09-12 09:16] LABS: MEAN CORPUSCULAR HEMOGLOBIN 29.2 PG (27.0-31.0); MEAN CORPUSCULAR HGB CONC 32.2 G/DL (32.0-36.0); MEAN CORPUSCULAR VOLUME 91 FL (80-99); PLATELET COUNT 334 K/UL (150-450); RED BLOOD COUNT 3.39 M/UL (4.20-5.40); RED CELL DISTRIBUTION WIDTH 12.4 % (11.6-14.8); WHITE BLOOD COUNT 16.1 K/UL (4.8-10.8)
[2016-09-12] MEDS ORDERED: EPINEPHrine 1mg/1ml Amp ONE (09:22)
[2016-09-12] MEDS ORDERED: Bacitracin 50000 Units Vial ONE (09:22)
[2016-09-12] MEDS ORDERED: Bacitracin Oint 15gm Tube TOPIC ONE (09:22)
[2016-09-12] MEDS ORDERED: Lidocaine 1% 10mg/ml/Epi 0.005mg/ml 30ml vial INJ ONE (09:22)
--- NOTE | 2016-09-12 09:44 | Anethesia Preoperative Eval ---
Anesthesia Pre-op PMH/ROS General Date of Evaluation: Sep 12, 2016 Time of Evaluation: 09:39 Anesthesiologist: Clayton ASA Score: ASA 2 Mallampati Score Class I : Soft palate, uvula, fauces, pillars visible Class II: Soft palate, uvula, fauces visible Class III: Soft palate, base of uvula visible Class IV: Only hard plate visible Mallampati Classification: Class II Surgeon: Ligia Diagnosis: L buttock wound abscess Surgical Procedure: I&D of L buttock wound abscess Anesthesia History: PONV Family History: no anesthesia problems Allergies: Coded Allergies: No Known Allergies (Unverified , 09/05/16) Medications: see eMAR Past Medical History Cardiovascular: Denies: CAD, HTN, [place], arrhythmia, other, valve dz Pulmonary: Denies: COPD, ED, asthma, other Gastrointestinal/Genitourinary: Reports: GERD, Denies: CRI, ESRD, other Neurologic/Psychiatric: Denies: CVA, TIA, dementia, depression/anxiety, other Endocrine: Denies: DM, hypothyroidism, other, steroids HEENT: Denies: NORTHWAY (L), [place]AY (R), cataract (L), cataract (R), glaucoma, other Hematology/Immune: Reports: anemia - mild, Denies: DVT, bleeding disorder, other Musculoskeletal/Integumentary: 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 Exam Physician Exam Last Vital Signs Date Time Temp Pulse Resp B/P Pulse Ox O2 Delivery O2 Flow Rate FiO2 09/12/16 08:00 16 09/12/16 07:50 98.1 109 101/58 98 Room Air 09/08/16 11:39 3.0 Constitutional: NAD Neurologic: CN 2-12 intact Cardiovascular: RRR, no M/R/G Respiratory: CTA Gastrointestinal: S/NT/ND Airway Exam Mallampati Score: Class II MO: full Neck: flexible ROM: full Teeth: intact Dentures: no lower, no upper Anesthesia Pre-op A/P Labs Hematology Test 09/12/16 08:45 White Blood Count 16.1 K/UL (4.8-10.8) H Red Blood Count 3.39 M/UL (4.20-5.40) L Hemoglobin 9.9 G/DL (12.0-16.0) L Hematocrit 30.7 % (37.0-47.0) L Mean Corpuscular Volume 91 FL (80-99) Mean Corpuscular Hemoglobin 29.2 PG (27.0-31.0) Mean Corpuscular Hemoglobin Concent 32.2 G/DL (32.0-36.0) Red Cell Distribution Width 12.4 % (11.6-14.8) Platelet Count 334 K/UL (150-450) Mean Platelet Volume 6.0 FL (6.5-10.1) L Neutrophils (%) (Auto) % (45.0-75.0) Lymphocytes (%) (Auto) % (20.0-45.0) Monocytes (%) (Auto) % (1.0-10.0) Eosinophils (%) (Auto) % (0.0-3.0) Basophils (%) (Auto) % (0.0-2.0) Neutrophils % (Manual) Pending Lymphocytes % (Manual) Pending Platelet Estimate Pending Platelet Morphology Pending Risk Assessment & Plan Assessment: ASA 2 Plan: TIVA with LMA PONV prevention Status Change Before Surgery: AMANDA Rivera M.D. Sep 12, 2016 09:44
[2016-09-12] MEDS ORDERED: cefOXitin 1gm Inj ONE (09:56)
--- NOTE | 2016-09-12 10:00 | Urology Progress Note ---
Assessment/Plan Assessment/Plan 1. Urinary retention. 2. Probable atonic bladder. 3. Hematuria. 4. POD # 4, cysto araya out monitor for voiding check PVR Subjective Allergies: Coded Allergies: No Known Allergies (Unverified , 09/05/16) Subjective all noted, voiding, for I+D of buttock abscess later today Objective Last 24 Hour Vital Signs Date Time Temp Pulse Resp B/P Pulse Ox O2 Delivery O2 Flow Rate FiO2 09/12/16 08:00 16 09/12/16 07:50 98.1 109 18 101/58 98 Room Air 09/12/16 04:30 98.2 101 16 96/52 98 Room Air 09/12/16 04:00 16 09/12/16 00:00 16 09/12/16 00:00 100.2 99 20 110/73 99 Room Air 09/11/16 21:36 100.0 09/11/16 20:00 102.4 112 20 122/77 100 Room Air 09/11/16 20:00 16 09/11/16 16:00 98.4 89 20 127/74 99 Room Air 09/11/16 16:00 18 09/11/16 12:00 98.2 87 18 102/62 94 Room Air 09/11/16 12:00 18 Intake and Output 09/11/16 09/12/16 19:00 07:00 Intake Total 1510 ml 230 ml Output Total 1500 ml 260 ml Balance 10 ml -30 ml Intake Oral 900 ml IV Total 610 ml 230 ml Output Urine Total 1500 ml 250 ml Drainage Total 0 ml 10 ml # Voids 5 # Bowel Movements 1 Microbiology Date/Time Source Procedure Growth Status 09/05/16 14:05 Blood Blood Culture - Final NO GROWTH AFTER 5 DAYS Complete Current Medications Medications (Trade) Dose Ordered Sig/Dylon Route PRN Reason Start Time Stop Time Status Last Admin Dose Admin Acetaminophen (Tylenol) 650 mg Q4H PRN ORAL T>100.5 09/08/16 11:00 10/08/16 10:59 09/11/16 20:15 Al Hydroxide/Mg Hydroxide (Mylanta II) 30 ml Q6H PRN ORAL dyspepsia 09/05/16 16:00 10/05/16 15:59 Bisacodyl (Dulcolax) 10 mg HSPRN PRN RECTAL Constipation 3RD LINE AGENT 09/05/16 16:00 10/05/16 15:59 Cefazolin Sodium/ Dextrose (Ancef/D5W) 55 ml @ 110 mls/hr Q8HR IVPB 09/05/16 22:00 09/12/16 21:59 09/12/16 06:05 Dextrose STAT PRN IV Hypoglycemia 09/05/16 16:00 10/05/16 15:59 Dextrose/Sodium Chloride (D5ns) 1,000 ml @ 50 mls/hr Q20H IV 09/05/16 17:00 10/05/16 16:59 09/11/16 01:36 Diphenhydramine HCl (Benadryl) 25 mg Q6H PRN ORAL Itching/Pruritis 09/05/16 16:00 10/05/16 15:59 09/11/16 16:38 Docusate Sodium (Colace) 100 mg EVERY 12 HOURS ORAL 09/05/16 21:00 10/05/16 20:59 09/11/16 21:37 Heparin Sodium (Porcine) (Heparin 5000 units/ml) 5,000 units EVERY 12 HOURS SUBQ 09/08/16 21:00 10/08/16 20:59 09/11/16 21:37 Hydromorphone HCl (Dilaudid) 2 mg Q3H PRN SUBQ Severe Pain (Pain Scale 7-10) 09/12/16 09:30 09/14/16 09:29 Hydromorphone HCl (Dilaudid) 2 mg Q4H PRN IVP Moderate Pain (Pain Scale 4-6) 09/12/16 09:30 09/14/16 09:29 Hydromorphone HCl (FLAT FOLDER Dilaudid) 30 ml @ 0 mls/hr Q24H PRN IV For Pain 09/12/16 09:30 09/14/16 09:29 Lactobacillus Acidophilus (Culturelle) 1 tab TWICE A DAY ORAL 09/05/16 18:00 10/05/16 17:59 09/11/16 16:38 Lorazepam 0.5 mg 0.5 mg Q4H PRN IV For Anxiety 09/10/16 12:00 09/12/16 11:59 Magnesium Hydroxide (Mom) 30 ml HSPRN PRN ORAL Constipation 2ND LINE AGENT 09/05/16 16:00 10/05/16 15:59 Metoclopramide HCl (Reglan) 10 mg Q6H PRN IVP Nausea & Vomiting 09/06/16 13:30 10/06/16 13:29 09/06/16 19:51 Miscellaneous Medication (FLAT FOLDER shift volume) 1 ea Q12HR@0700,1900 MISC 09/12/16 19:00 09/13/16 18:59 Naloxone HCl (Narcan) 0.1 mg PRN IV . 09/10/16 09:30 09/14/16 09:29 Ondansetron HCl (Zofran) 4 mg Q6H PRN IVP Nausea & Vomiting 09/12/16 09:30 09/14/16 09:29 Polyethylene Glycol (Miralax) 17 gm HSPRN PRN ORAL Constipation FIRST LINE AGENT 09/05/16 16:00 10/05/16 15:59 09/10/16 11:54 Zolpidem Tartrate (Ambien) 5 mg HSPRN PRN ORAL Insomnia 09/08/16 21:00 10/08/16 20:59 Laboratory Tests 09/12/16 08:45: White Blood Count 16.1H, Red Blood Count 3.39L, Hemoglobin 9.9L, Hematocrit 30.7L, Mean Corpuscular Volume 91, Mean Corpuscular Hemoglobin 29.2, Mean Corpuscular Hemoglobin Concent 32.2, Red Cell Distribution Width 12.4, Platelet Count 334, Mean Platelet Volume 6.0L, Neutrophils (%) (Auto) , Lymphocytes (%) ( Auto) , Monocytes (%) (Auto) , Eosinophils (%) (Auto) , Basophils (%) (Auto) , Neutrophils % (Manual) [Pending], Lymphocytes % (Manual) [Pending], Platelet Estimate [Pending], Platelet Morphology [Pending] Height (Feet): 5 Height (Inches): 4.50 Weight (Pounds): 138 Objective exam stable KEYLA KELLEY Sep 12, 2016 10:00
[2016-09-12 10:17] LABS: ANISOCYTOSIS 1+; BAND NEUTROPHILS % (MANUAL) 0 % (0-8); BASOPHILS % (MANUAL) 0 % (0-2); EOSINOPHILS % (MANUAL) 0 % (0-3); HYPOCHROMASIA 2+; LYMPHOCYTES % (MANUAL) 9 % (20-45); NEUTROPHILS % (MANUAL) 88 % (45-75); PLATELET ESTIMATE ADEQUATE; PLATELET MORPHOLOGY NORMAL; TOTAL CELLS COUNTED 100
--- NOTE | 2016-09-12 11:42 | Pre-Procedure Note/Attestation ---
Pre-Procedure Note/Attestation Complete Prior to Procedure Planned Procedure: left Indications for Procedure Pre-Operative Diagnosis: Left buttock abscess Attestation I attest that I discussed the nature of the procedure; its benefits; risks and complications; and alternatives (and the risks and benefits of such alternatives ), prior to the procedure, with the patient (or the patient's legal goodwill representative). I attest that, if there was a reasonable possibility of needing a blood transfusion, the patient (or the patient's legal goodwill representative) was given the [facility] standardized written summary, pursuant to the [place] Blood Safety Act ([place] Health and Safety Code # 1645, as amended). I attest that I re-evaluated the patient just prior to the surgery and that there has been no change in the patient's H&P, except as documented below: FABIOLA SOW Sep 12, 2016 11:42
[2016-09-12] MEDS ORDERED: PCA HYDROmorphone 1mg/ml 30 ML IV PRN (11:45)
[2016-09-12] MEDS ORDERED: fentaNYL 100 mcg/2 mL IV ONE (11:45)
[2016-09-12] MEDS ORDERED: LR 1000ml ONE (11:45)
[2016-09-12] MEDS ORDERED: NS Irrig 1000ml ONE (11:45)
[2016-09-12] MEDS ORDERED: Rate Change PCA 1 Each MISC PRN (11:45)
[2016-09-12] MEDS ORDERED: Midazolam 2mg/2ml Inj ONE (11:45)
[2016-09-12] MEDS ORDERED: Propofol 10mg/ml 100ml btl IV ONE (11:45)
[2016-09-12] MEDS ORDERED: Sterile Water Irrig 1000ml IRRIG ONE (11:45)
[2016-09-12] MEDS ORDERED: Ketorolac 30mg Inj ONE (11:45)
[2016-09-12] MEDS ORDERED: NS Irrig 1000ml IRRIG ONE (12:04)
[2016-09-12] MEDS ORDERED: Surgicel 4in x 8in TOPIC ONE (12:11)
[2016-09-12] MEDS ORDERED: LR 1000ml 1,000 ML IVLG SCH (12:17)
[2016-09-12] MEDS ORDERED: Metoclopramide 10mg/2ml Inj IVP PRN (12:30)
[2016-09-12] MEDS ORDERED: Meperidine 25mg/0.5ml Inj IV PRN (12:30)
[2016-09-12] MEDS ORDERED: Midazolam 2mg/2ml Inj IVP PRN (12:30)
[2016-09-12] MEDS ORDERED: DiphenhydrAMINE 50mg/ml Inj IVP PRN (12:30)
[2016-09-12] MEDS ORDERED: Hydromorphone 0.5mg/0.5ml inj IVP PRN (12:30)
--- NOTE | 2016-09-12 12:33 | Operative Note - PDOC ---
Operative Note Operative Note Pre-op Diagnosis: Left buttock abscess Procedure: Left buttock abscess drainage Post-op Diagnosis: same as pre-op Operative Findings: other Surgeon: Ligia Anesthesiologist: hazel Anesthesia: general Specimen: none Complications: none Condition: stable Estimated Blood Loss: minimal Drains: none Implant(s) used?: No FABIOLA SOW Sep 12, 2016 12:33
--- NOTE | 2016-09-12 12:41 | Immediate Post-Op Evaluation ---
Immediate Post-Op Evalulation Immediate Post-Op Evalulation Procedure: I&D of L buttock wound abscess Date of Evaluation: Sep 12, 2016 Time of Evaluation: 12:40 IV Fluids: 600 Blood Products: none Estimated Blood Loss: min Urinary Output: none Blood Pressure Systolic: 108 Blood Pressure Diastolic: 71 Pulse Rate: 87 Respiratory Rate: 20 O2 Sat by Pulse Oximetry: 100 Temperature (Fahrenheit): 97.7 Pain Score (1-10): 2 Nausea: No Vomiting: No Complications none Patient Status: reacts, patent, none Hydration Status: adequate AMANDA VILLA M.D. Sep 12, 2016 12:41
[2016-09-12] MEDS: PCA HYDROmorphone 1mg/ml 30 ML IV PRN (12:54)
--- NOTE | 2016-09-12 14:38 | General Progress Note ---
Assessment/Plan Problem List: (1) Groin abscess Assessment & Plan: s/p subsequent I+D earlier today DC ancef, start vanco/cefepime f/u blood cx Cont IV abx Pain control Supp care Plastic surgery consult appreciated A total of 31mins of time was spent with this patient on coordination of care and counseling in addition to the face to face time. ICD Codes: L02.214 - Cutaneous abscess of groin SNOMED: [id number] Subjective Date patient seen: Sep 12, 2016 Time patient seen: 14:37 ROS Limited/Unobtainable: No Allergies: Coded Allergies: No Known Allergies (Unverified , 09/05/16) Subjective Had an area of pus from one of the surgical wounds, taken to OR earlier today, s /p I+D, no periop or postop complications. No chest pain or dyspnea, postop pain well controlled. Objective Last 24 Hour Vital Signs Date Time Temp Pulse Resp B/P Pulse Ox O2 Delivery O2 Flow Rate FiO2 09/12/16 14:00 97.5 84 18 102/62 96 Nasal Cannula 3.0 09/12/16 14:00 98.0 09/12/16 13:45 98.0 84 13 110/79 100 Nasal Cannula 3.0 09/12/16 13:40 12 09/12/16 13:30 84 12 115/82 100 Nasal Cannula 3.0 09/12/16 13:25 26 09/12/16 13:24 97.6 09/12/16 13:24 97.6 09/12/16 13:15 87 18 112/83 100 Nasal Cannula 3.0 09/12/16 13:10 15 09/12/16 13:00 94 22 134/93 100 Nasal Cannula 3.0 09/12/16 12:54 12 09/12/16 12:45 86 12 117/78 100 Simple Mask 6.0 09/12/16 12:41 87 20 100 09/12/16 12:40 88 13 108/71 100 Simple Mask 6.0 09/12/16 12:35 97.7 90 14 106/72 100 Simple Mask 6.0 09/12/16 11:20 16 09/12/16 08:00 16 09/12/16 07:50 98.1 109 18 101/58 98 Room Air 09/12/16 04:30 98.2 101 16 96/52 98 Room Air 09/12/16 04:00 16 09/12/16 00:00 16 09/12/16 00:00 100.2 99 20 110/73 99 Room Air 09/11/16 21:36 100.0 09/11/16 20:00 102.4 112 20 122/77 100 Room Air 09/11/16 20:00 16 09/11/16 16:00 98.4 89 20 127/74 99 Room Air 09/11/16 16:00 18 Intake and Output 09/11/16 09/12/16 19:00 07:00 Intake Total 1510 ml 230 ml Output Total 1500 ml 260 ml Balance 10 ml -30 ml Intake Oral 900 ml IV Total 610 ml 230 ml Output Urine Total 1500 ml 250 ml Drainage Total 0 ml 10 ml # Voids 5 # Bowel Movements 1 Laboratory Tests 09/12/16 08:45: White Blood Count 16.1H, Red Blood Count 3.39L, Hemoglobin 9.9L, Hematocrit 30.7L, Mean Corpuscular Volume 91, Mean Corpuscular Hemoglobin 29.2, Mean Corpuscular Hemoglobin Concent 32.2, Red Cell Distribution Width 12.4, Platelet Count 334, Mean Platelet Volume 6.0L, Neutrophils (%) (Auto) , Lymphocytes (%) ( Auto) , Monocytes (%) (Auto) , Eosinophils (%) (Auto) , Basophils (%) (Auto) , Differential Total Cells Counted 100, Neutrophils % (Manual) 88H, Lymphocytes % (Manual) 9L, Monocytes % (Manual) 3, Eosinophils % (Manual) 0, Basophils % ( Manual) 0, Band Neutrophils 0, Platelet Estimate Adequate, Platelet Morphology Normal, Hypochromasia 2+, Anisocytosis 1+ Height (Feet): 5 Height (Inches): 4.50 Weight (Pounds): 138 Objective General: alert, cooperative, no distress, appears stated age Head: normocephalic, without obvious abnormality, atraumatic Eyes: conjunctivae/corneas clear. PERRL, EOM's intact Throat: lips, mucosa, and tongue normal. MMM Neck: supple, symmetrical, trachea midline, and no JVD Lungs: clear to auscultation bilaterally Heart: regular rate and rhythm, S1, S2 normal, no murmur, click, rub or gallop Abdomen: soft, non-tender, non-distended, bowel sounds normal; no masses or organomegaly Extremities: extremities normal, atraumatic, no cyanosis or edema Pulses: 2+ and symmetric Skin: skin color, texture, turgor normal; no rashes or lesions Neurologic: grossly normal, no focal deficits KENDRICK WILDER Sep 12, 2016 14:38
--- NOTE | 2016-09-12 16:58 | Operative Note - Dictated ---
DATE OF OPERATION: 09/12/2016 PREOPERATIVE DIAGNOSIS: Left buttock abscess. POSTOPERATIVE DIAGNOSIS: Left buttock abscess. PROCEDURES: 1. Exploration of left buttock wound. 2. Drainage of left buttock wound. 3. Debridement of left buttock wound SURGEON: Gudelia Strong M.D. WHIPPED TOPPING MIXER: None. ANESTHESIA: General. COMPLICATIONS: None. EBL: Minimal. DISPOSITION: Stable to the recovery room. INDICATIONS FOR SURGERY: This is a 50-year-old female, who is now four days postoperative from closure of right groin and left buttock wounds. She has been doing well. Her right groin wound has been healing very nicely. However, over the past 48 hours, she has been having increasing pain in her left buttock with tenderness in the area of the closure and last night, she spiked a temperature to 102.3 and also had an elevated white count of 16. On my examination, I felt that she had a wound abscess, which needed to be explored and drained. She understood the risks and benefits of the surgery and agreed to proceed. DETAILS OF THE OPERATION: The patient was brought to the operating room and laid in the lateral decubitus position on the operating room table. Her lower buttock on the left side was prepped and draped in a sterile and usual fashion. We first began by removing the old sutures placed in the left buttock wound closure. We explored the wound and we came across a 2 to 3 mL of purulent material and fluid, which was evacuated. The wound was further explored. There appeared to be no foreign body present within the wound aside from the pus, which was evacuated. The wound was then copiously irrigated and after completion of the exploration, the wound was debrided at its edges to remove some of nonviable tissue. Given the fact that this was evacuation of pus and drainage of the wound, we felt that it would not be prudent to perform reclosure of this wound. The wound was then packed with an iodoform packing and a compressive dressing was then applied. The patient tolerated the procedure well and there were no complications. Gudelia Strong M.D. DR: YOGESH/A JOB#: [id number] CC: BRANDEE
[2016-09-12] MEDS: Vancomycin 1gm in D5W 275ml IVPB SCH (17:28)
[2016-09-12] MEDS ORDERED: PCA shift volume MISC SCH (19:00)
[2016-09-13] MEDS: Miralax 17gm pkt ORAL PRN (03:24)
[2016-09-13 04:00] VITALS: BP 107/56
[2016-09-13] MEDS: Vancomycin 1gm in D5W 275ml IVPB SCH ×2 (05:56→18:14)
[2016-09-13] MEDS: PCA shift volume MISC SCH (07:07)
[2016-09-13 08:16] VITALS: BP 99/63
[2016-09-13] MEDS: Docusate 100mg tablet ORAL SCH ×2 (08:41→21:37)
[2016-09-13] MEDS: Lactobacillus-GG tablet ORAL SCH ×2 (08:41→18:14)
--- NOTE | 2016-09-13 08:42 | General Progress Note ---
Progress Note Progress Note Pt seen and examined. Feeling much better since yesterdays left buttock drainage. R groin wound is healing well. Will remove packing from left buttock tomorrow and f up on cultures to tailor abx over the next 24 hours. Check CBC in AM. FABIOLA Arndt MD Sep 13, 2016 08:42
[2016-09-13] MEDS: Heparin 5000 units/ml inj SUBQ SCH ×2 (08:48→21:38)
--- NOTE | 2016-09-13 09:27 | Urology Progress Note ---
Assessment/Plan Assessment/Plan 1. Urinary retention. 2. Probable atonic bladder. 3. Hematuria. 4. POD # 5, cysto araya out monitor for voiding reinsert araya PRN Subjective Allergies: Coded Allergies: No Known Allergies (Unverified , 09/05/16) Subjective all noted, voiding, PVR <100 cc by report Objective Last 24 Hour Vital Signs Date Time Temp Pulse Resp B/P Pulse Ox O2 Delivery O2 Flow Rate FiO2 09/13/16 08:16 98.1 87 20 99/63 96 Room Air 09/13/16 08:00 17 09/13/16 04:00 16 09/13/16 04:00 98.2 86 16 107/56 98 Room Air 09/13/16 00:00 16 09/12/16 20:00 16 09/12/16 20:00 97.9 94 18 109/64 97 Nasal Cannula 09/12/16 16:00 97.7 98 18 108/67 98 Nasal Cannula 2.0 09/12/16 16:00 18 09/12/16 14:00 97.5 84 18 102/62 96 Nasal Cannula 3.0 09/12/16 14:00 98.0 09/12/16 13:45 98.0 84 13 110/79 100 Nasal Cannula 3.0 09/12/16 13:40 12 09/12/16 13:30 84 12 115/82 100 Nasal Cannula 3.0 09/12/16 13:25 26 09/12/16 13:24 97.6 09/12/16 13:24 97.6 09/12/16 13:15 87 18 112/83 100 Nasal Cannula 3.0 09/12/16 13:10 15 09/12/16 13:00 94 22 134/93 100 Nasal Cannula 3.0 09/12/16 12:54 12 09/12/16 12:45 86 12 117/78 100 Simple Mask 6.0 09/12/16 12:41 87 20 100 09/12/16 12:40 88 13 108/71 100 Simple Mask 6.0 09/12/16 12:35 97.7 90 14 106/72 100 Simple Mask 6.0 09/12/16 11:20 16 Intake and Output 09/12/16 09/13/16 19:00 07:00 Intake Total 1550 ml 480 ml Output Total 736 ml Balance 814 ml 480 ml Intake Oral 500 ml 480 ml IV Total 1050 ml Output Urine Total 701 ml Estimated Blood Loss 35 ml # Voids 5 Microbiology Date/Time Source Procedure Growth Status 09/05/16 14:05 Blood Blood Culture - Final NO GROWTH AFTER 5 DAYS Complete Current Medications Medications (Trade) Dose Ordered Sig/Dylon Route PRN Reason Start Time Stop Time Status Last Admin Dose Admin Acetaminophen (Tylenol) 650 mg Q4H PRN ORAL FEVER>100.5 09/12/16 13:45 10/12/16 13:44 Al Hydroxide/Mg Hydroxide (Mylanta II) 30 ml Q6H PRN ORAL dyspepsia 09/05/16 16:00 10/05/16 15:59 Bisacodyl (Dulcolax) 10 mg HSPRN PRN RECTAL Constipation 3RD LINE AGENT 09/05/16 16:00 10/05/16 15:59 Cefepime HCl 1 gm/ Dextrose 55 ml @ 110 mls/hr Q24H IVPB 09/13/16 11:00 09/20/16 10:59 Dextrose (Dextrose 50%) STAT PRN IV Hypoglycemia 09/05/16 16:00 10/05/16 15:59 Dextrose/Sodium Chloride (D5ns) 1,000 ml @ 50 mls/hr Q20H IV 09/05/16 17:00 10/05/16 16:59 09/12/16 15:38 Diphenhydramine HCl (Benadryl) 25 mg Q6H PRN ORAL Itching/Pruritis 09/14/16 10:00 10/14/16 09:59 Docusate Sodium (Colace) 100 mg EVERY 12 HOURS ORAL 09/05/16 21:00 10/05/16 20:59 09/13/16 08:41 Heparin Sodium (Porcine) (Heparin 5000 units/ml) 5,000 units EVERY 12 HOURS SUBQ 09/12/16 21:00 10/12/16 20:59 09/13/16 08:48 Hydromorphone HCl (Dilaudid) 2 mg Q3H PRN SUBQ Severe Pain (Pain Scale 7-10) 09/12/16 09:30 09/14/16 09:29 Hydromorphone HCl (Dilaudid) 2 mg Q4H PRN IVP Moderate Pain (Pain Scale 4-6) 09/12/16 09:30 09/14/16 09:29 Hydromorphone HCl (COMMUNITY SERVICE PATROL OFFICER Dilaudid) 30 ml @ 0 mls/hr Q24H PRN IV For Pain 09/12/16 09:30 09/14/16 09:29 09/12/16 12:54 Lactobacillus Acidophilus (Culturelle) 1 tab TWICE A DAY ORAL 09/05/16 18:00 10/05/16 17:59 09/13/16 08:41 Magnesium Hydroxide (Mom) 30 ml HSPRN PRN ORAL Constipation 2ND LINE AGENT 09/05/16 16:00 10/05/16 15:59 Metoclopramide HCl (Reglan) 10 mg Q6H PRN IVP Nausea & Vomiting 09/06/16 13:30 10/06/16 13:29 09/06/16 19:51 Miscellaneous Medication (COMMUNITY SERVICE PATROL OFFICER shift volume) 1 ea Q12HR@0700,1900 MISC 09/12/16 19:00 09/13/16 18:59 09/13/16 07:07 Naloxone HCl (Narcan) 0.1 mg PRN IV . 09/10/16 09:30 09/14/16 09:29 Ondansetron HCl (Zofran) 4 mg Q6H PRN IVP Nausea & Vomiting 09/12/16 09:30 09/14/16 09:29 Ondansetron HCl (Zofran) 4 mg Q6H PRN IVP Nausea & Vomiting 09/14/16 10:00 10/14/16 09:59 Polyethylene Glycol (Miralax) 17 gm HSPRN PRN ORAL Constipation FIRST LINE AGENT 09/05/16 16:00 10/05/16 15:59 09/13/16 03:24 Vancomycin HCl 1 ea 1 ea DAILY PRN MISC Per rx protocol 09/12/16 14:45 10/12/16 14:44 Vancomycin HCl/ Dextrose (Vancomycin/D5W) 275 ml @ 183.708 mls/hr Q12HR@0600,1800 IVPB 09/12/16 18:00 09/17/16 17:59 09/13/16 05:56 Zolpidem Tartrate 5 mg 5 mg HSPRN PRN ORAL Insomnia 09/08/16 21:00 10/08/16 20:59 Height (Feet): 5 Height (Inches): 4.50 Weight (Pounds): 138 Objective exam stable KEYLA KELLEY Sep 13, 2016 09:27
--- NOTE | 2016-09-13 09:37 | 48 Hour Post Anesthesia Eval ---
Post Anesthesia Evaluation Procedure: I&D of L buttock wound abscess Date of Evaluation: Sep 13, 2016 Time of Evaluation: 09:36 Blood Pressure Systolic: 94 0: 63 Pulse Rate: 87 Respiratory Rate: 20 Temperature (Fahrenheit): 98.1 O2 Sat by Pulse Oximetry: 96 Airway: patent Nausea: No Vomiting: No Pain Intensity: 2 Hydration Status: adequate Cardiopulmonary Status: Stable Mental Status/LOC: patient returned to baseline Follow-up Care/Observations: 0 Post-Anesthesia Complications: 0 Follow-up care needed: N/A Oliverio Lloyd MD Sep 13, 2016 09:37
[2016-09-13] MEDS: Cefepime HCl 1 GM in D5W 55 ML IVPB SCH (11:26)
[2016-09-13 12:00] VITALS: BP 96/56
[2016-09-13] MEDS: PCA HYDROmorphone 1mg/ml 30 ML IV PRN (13:40)
--- NOTE | 2016-09-13 14:50 | General Progress Note ---
Assessment/Plan Problem List: (1) Groin abscess Assessment & Plan: s/p subsequent I+D POD#1 Cont vanco/cefepime f/u blood cx, wound cx Check CBC with diff in AM Cont IV abx Pain control Supp care Plastic surgery consult appreciated A total of 31mins of time was spent with this patient on coordination of care and counseling in addition to the face to face time. ICD Codes: L02.214 - Cutaneous abscess of groin SNOMED: 72420540 Subjective Date patient seen: Sep 13, 2016 Time patient seen: 14:48 ROS Limited/Unobtainable: No Allergies: Coded Allergies: No Known Allergies (Unverified , 09/05/16) Subjective s/p I+D, no periop or postop complications. No chest pain or dyspnea, postop pain well controlled. Objective Last 24 Hour Vital Signs Date Time Temp Pulse Resp B/P Pulse Ox O2 Delivery O2 Flow Rate FiO2 09/13/16 12:00 98.2 86 17 96/56 96 Room Air 09/13/16 12:00 17 09/13/16 09:37 87 20 96 09/13/16 08:16 98.1 87 20 99/63 96 Room Air 09/13/16 08:00 17 09/13/16 04:00 16 09/13/16 04:00 98.2 86 16 107/56 98 Room Air 09/13/16 00:00 16 09/12/16 20:00 16 09/12/16 20:00 97.9 94 18 109/64 97 Nasal Cannula 09/12/16 16:00 97.7 98 18 108/67 98 Nasal Cannula 2.0 09/12/16 16:00 18 Intake and Output 09/12/16 09/13/16 19:00 07:00 Intake Total 1550 ml 530 ml Output Total 736 ml Balance 814 ml 530 ml Intake Oral 500 ml 480 ml IV Total 1050 ml 50 ml Output Urine Total 701 ml Estimated Blood Loss 35 ml # Voids 5 Height (Feet): 5 Height (Inches): 4.50 Weight (Pounds): 138 Objective General: alert, cooperative, no distress, appears stated age Head: normocephalic, without obvious abnormality, atraumatic Eyes: conjunctivae/corneas clear. PERRL, EOM's intact Throat: lips, mucosa, and tongue normal. MMM Neck: supple, symmetrical, trachea midline, and no JVD Lungs: clear to auscultation bilaterally Heart: regular rate and rhythm, S1, S2 normal, no murmur, click, rub or gallop Abdomen: soft, non-tender, non-distended, bowel sounds normal; no masses or organomegaly Extremities: extremities normal, atraumatic, no cyanosis or edema Pulses: 2+ and symmetric Skin: skin color, texture, turgor normal; no rashes or lesions Neurologic: grossly normal, no focal deficits KENDRICK WILDER Sep 13, 2016 14:49
[2016-09-13 16:00] VITALS: BP 109/66
[2016-09-13] MEDS ORDERED: D5W 275ml ONE (16:22)
[2016-09-13] MEDS ORDERED: Tubing IV Secondary IV ONE (16:22)
[2016-09-13 20:00] VITALS: BP 85/59
[2016-09-13 21:36] VITALS: BP 112/67
[2016-09-14] MEDS: D5NS 1,000 ML IV SCH ×2 (00:49→20:29)
[2016-09-14 04:00] VITALS: BP 111/65
[2016-09-14] MEDS: Vancomycin 1gm in D5W 275ml IVPB SCH (05:20)
[2016-09-14 05:36] LABS: BASOPHILS % (AUTO) 0.5 % (0.0-2.0); LYMPHOCYTES % (AUTO) 27.3 % (20.0-45.0); MEAN CORPUSCULAR HEMOGLOBIN 29.1 PG (27.0-31.0); MEAN CORPUSCULAR HGB CONC 32.3 G/DL (32.0-36.0); MEAN CORPUSCULAR VOLUME 90 FL (80-99); MEAN PLATELET VOLUME 5.6 FL (6.5-10.1); NEUTROPHILS % (AUTO) 60.1 % (45.0-75.0); PLATELET COUNT 405 K/UL (150-450); RED BLOOD COUNT 3.41 M/UL (4.20-5.40); RED CELL DISTRIBUTION WIDTH 12.4 % (11.6-14.8)
[2016-09-14] MEDS ORDERED: PCA HYDROmorphone 1mg/ml 30 ML IV PRN (08:00)
[2016-09-14 08:05] VITALS: BP 116/77
[2016-09-14] MEDS: Lactobacillus-GG tablet ORAL SCH ×2 (08:25→18:35)
[2016-09-14] MEDS: Docusate 100mg tablet ORAL SCH ×2 (08:26→20:29)
[2016-09-14] MEDS: Heparin 5000 units/ml inj SUBQ SCH ×2 (08:28→20:35)
--- NOTE | 2016-09-14 10:52 | Urology Progress Note ---
Assessment/Plan Assessment/Plan 1. Urinary retention. 2. Probable atonic bladder. 3. Hematuria. 4. POD # 6, cysto araya out monitor for voiding reinsert araya PRN Subjective Allergies: Coded Allergies: No Known Allergies (Unverified , 09/05/16) Subjective all noted, some difficulty voiding Objective Last 24 Hour Vital Signs Date Time Temp Pulse Resp B/P Pulse Ox O2 Delivery O2 Flow Rate FiO2 09/14/16 08:05 97.5 85 21 116/77 99 Room Air 09/14/16 08:00 20 09/14/16 04:00 20 09/14/16 04:00 97.5 76 18 111/65 97 Room Air 09/14/16 00:00 20 09/13/16 21:36 98.6 85 20 112/67 97 Room Air 09/13/16 20:00 18 09/13/16 20:00 97.5 86 20 85/59 98 Room Air 09/13/16 16:00 20 09/13/16 16:00 97.9 91 20 109/66 98 Room Air 09/13/16 12:00 98.2 86 17 96/56 96 Room Air 09/13/16 12:00 17 Intake and Output 09/13/16 09/14/16 19:00 07:00 Intake Total 475 ml 690 ml Balance 475 ml 690 ml Intake Oral 240 ml IV Total 475 ml 450 ml # Voids 3 Microbiology Date/Time Source Procedure Growth Status 09/05/16 14:05 Blood Blood Culture - Final NO GROWTH AFTER 5 DAYS Complete 09/12/16 12:10 Buttock Left Gram Stain - Final Resulted 09/12/16 12:10 Buttock Left Aerobic Culture - Preliminary NO GROWTH AFTER 24 HOURS Resulted 09/12/16 12:10 Buttock Left Anaerobic Culture Pending Resulted Current Medications Medications (Trade) Dose Ordered Sig/Dylon Route PRN Reason Start Time Stop Time Status Last Admin Dose Admin Acetaminophen (Tylenol) 650 mg Q4H PRN ORAL FEVER>100.5 09/12/16 13:45 10/12/16 13:44 Al Hydroxide/Mg Hydroxide (Mylanta II) 30 ml Q6H PRN ORAL dyspepsia 09/05/16 16:00 10/05/16 15:59 Bisacodyl (Dulcolax) 10 mg HSPRN PRN RECTAL Constipation 3RD LINE AGENT 09/05/16 16:00 10/05/16 15:59 Cefepime HCl 1 gm/ Dextrose 55 ml @ 110 mls/hr Q24H IVPB 09/13/16 11:00 09/20/16 10:59 09/13/16 11:26 Dextrose (Dextrose 50%) STAT PRN IV Hypoglycemia 09/05/16 16:00 10/05/16 15:59 Dextrose/Sodium Chloride (D5ns) 1,000 ml @ 50 mls/hr Q20H IV 09/05/16 17:00 10/05/16 16:59 09/14/16 00:49 Diphenhydramine HCl (Benadryl) 25 mg Q6H PRN ORAL Itching/Pruritis 09/14/16 10:00 10/14/16 09:59 Docusate Sodium (Colace) 100 mg EVERY 12 HOURS ORAL 09/05/16 21:00 10/05/16 20:59 09/14/16 08:26 Heparin Sodium (Porcine) (Heparin 5000 units/ml) 5,000 units EVERY 12 HOURS SUBQ 09/12/16 21:00 10/12/16 20:59 09/14/16 08:28 Hydromorphone HCl (Dilaudid) 2 mg Q4H PRN IVP Moderate Pain (Pain Scale 4-6) 09/14/16 08:00 09/16/16 07:59 Hydromorphone HCl (BLACK ASH WORKER Dilaudid) 30 ml @ 0 mls/hr Q24H PRN IV For Pain 09/14/16 08:00 09/16/16 07:59 Hydromorphone HCl 2 mg 2 mg Q3H PRN SUBQ Severe Pain (Pain Scale 7-10) 09/14/16 08:00 09/16/16 07:59 Lactobacillus Acidophilus (Culturelle) 1 tab TWICE A DAY ORAL 09/05/16 18:00 10/05/16 17:59 09/14/16 08:25 Magnesium Hydroxide (Mom) 30 ml HSPRN PRN ORAL Constipation 2ND LINE AGENT 09/05/16 16:00 10/05/16 15:59 Metoclopramide HCl (Reglan) 10 mg Q6H PRN IVP Nausea & Vomiting 09/06/16 13:30 10/06/16 13:29 09/06/16 19:51 Naloxone HCl (Narcan) 0.1 mg PRN IV . 09/10/16 08:00 09/18/16 07:59 Ondansetron HCl (Zofran) 4 mg Q6H PRN IVP Nausea & Vomiting 09/14/16 08:00 09/16/16 07:59 Ondansetron HCl (Zofran) 4 mg Q6H PRN IVP Nausea & Vomiting 09/14/16 10:00 10/14/16 09:59 Polyethylene Glycol (Miralax) 17 gm HSPRN PRN ORAL Constipation FIRST LINE AGENT 09/05/16 16:00 10/05/16 15:59 09/13/16 03:24 Vancomycin HCl 1 ea 1 ea DAILY PRN MISC Per rx protocol 09/12/16 14:45 10/12/16 14:44 Vancomycin HCl/ Dextrose (Vancomycin/D5W) 275 ml @ 183.708 mls/hr Q8H IVPB 09/14/16 13:30 09/19/16 13:29 Zolpidem Tartrate (Ambien) 5 mg HSPRN PRN ORAL Insomnia 09/08/16 21:00 10/08/16 20:59 Laboratory Tests 09/14/16 05:15: White Blood Count 8.0, Red Blood Count 3.41L, Hemoglobin 9.9L, Hematocrit 30.7L , Mean Corpuscular Volume 90, Mean Corpuscular Hemoglobin 29.1, Mean Corpuscular Hemoglobin Concent 32.3, Red Cell Distribution Width 12.4, Platelet Count 405, Mean Platelet Volume 5.6L, Neutrophils (%) (Auto) 60.1, Lymphocytes ( %) (Auto) 27.3, Monocytes (%) (Auto) 7.0, Eosinophils (%) (Auto) 5.0H, Basophils (%) (Auto) 0.5, Vancomycin Level Trough 7.3 Height (Feet): 5 Height (Inches): 4.50 Weight (Pounds): 138 Objective exam stable KEYLA KELLEY Sep 14, 2016 10:52
[2016-09-14] MEDS: Cefepime HCl 1 GM in D5W 55 ML IVPB SCH (11:27)
[2016-09-14 11:48] VITALS: BP 136/79
[2016-09-14] MEDS ORDERED: Vancomycin 1gm in D5W 275ml IVPB SCH (13:30)
--- NOTE | 2016-09-14 15:58 | General Progress Note ---
Assessment/Plan Problem List: (1) Groin abscess ICD Codes: L02.214 - Cutaneous abscess of groin SNOMED: 44576285 (2) Hidradenitis ICD Codes: L73.2 - Hidradenitis suppurativa SNOMED: 61125292 Status: stable Assessment/Plan s/p subsequent I+D POD#2 Cont vanco and cefepime f/u blood cx, wound cx trend CBC Pain control Bowel regimen Supp care Plastic surgery consult appreciated A total of 31mins of extra time was spent face to face with this patient on coordination of care and counseling in addition to normal encounter time. Subjective Date patient seen: Sep 14, 2016 Time patient seen: 15:56 ROS Limited/Unobtainable: No Constitutional: Reports: no symptoms HEENT: Reports: no symptoms Cardiovascular: Reports: no symptoms Respiratory: Reports: no symptoms Gastrointestinal/Abdominal: Reports: no symptoms Genitourinary: Reports: no symptoms Neurologic/Psychiatric: Reports: no symptoms Endocrine: Reports: no symptoms Hematologic/Lymphatic: Reports: no symptoms Allergies: Coded Allergies: No Known Allergies (Unverified , 09/05/16) All Systems: reviewed and negative except above Subjective POD#2 Pain controlled Tolerating diet Objective Last 24 Hour Vital Signs Date Time Temp Pulse Resp B/P Pulse Ox O2 Delivery O2 Flow Rate FiO2 09/14/16 12:00 20 09/14/16 11:48 97.5 109 19 136/79 97 Room Air 09/14/16 08:05 97.5 85 21 116/77 99 Room Air 09/14/16 08:00 20 09/14/16 04:00 20 09/14/16 04:00 97.5 76 18 111/65 97 Room Air 09/14/16 00:00 20 09/13/16 21:36 98.6 85 20 112/67 97 Room Air 09/13/16 20:00 18 09/13/16 20:00 97.5 86 20 85/59 98 Room Air 09/13/16 16:00 20 09/13/16 16:00 97.9 91 20 109/66 98 Room Air Intake and Output 09/13/16 09/14/16 19:00 07:00 Intake Total 475 ml 690 ml Balance 475 ml 690 ml Intake Oral 240 ml IV Total 475 ml 450 ml # Voids 3 Laboratory Tests 09/14/16 05:15: White Blood Count 8.0, Red Blood Count 3.41L, Hemoglobin 9.9L, Hematocrit 30.7L , Mean Corpuscular Volume 90, Mean Corpuscular Hemoglobin 29.1, Mean Corpuscular Hemoglobin Concent 32.3, Red Cell Distribution Width 12.4, Platelet Count 405, Mean Platelet Volume 5.6L, Neutrophils (%) (Auto) 60.1, Lymphocytes ( %) (Auto) 27.3, Monocytes (%) (Auto) 7.0, Eosinophils (%) (Auto) 5.0H, Basophils (%) (Auto) 0.5, Vancomycin Level Trough 7.3 Height (Feet): 5 Height (Inches): 4.50 Weight (Pounds): 138 Objective General: alert, cooperative, no distress, appears stated age Head: normocephalic, without obvious abnormality, atraumatic Eyes: conjunctivae/corneas clear. PERRL, EOM's intact Throat: lips, mucosa, and tongue normal. MMM Neck: supple, symmetrical, trachea midline, and no JVD Lungs: clear to auscultation bilaterally Heart: regular rate and rhythm, S1, S2 normal, no murmur, click, rub or gallop Abdomen: soft, non-tender, non-distended, bowel sounds normal; no masses or organomegaly Extremities: extremities normal, atraumatic, no cyanosis or edema Pulses: 2+ and symmetric Skin: skin color, texture, turgor normal; no rashes or lesions Neurologic: grossly normal, no focal deficits Yordan Russ M.D. Sep 14, 2016 15:58
[2016-09-14 16:43] VITALS: BP 114/70
[2016-09-14] MEDS: PCA shift volume MISC SCH (19:00)
[2016-09-14] MEDS ORDERED: PCA shift volume MISC SCH (19:35)
[2016-09-14] MEDS ORDERED: Rate Change PCA 1 Each MISC PRN (19:45)
[2016-09-14] MEDS: Vancomycin 1.25 GM in D5W 275 ML IVPB SCH (20:29)
[2016-09-14 20:44] VITALS: BP 101/54
[2016-09-15 00:23] VITALS: BP 105/79
[2016-09-15 04:08] VITALS: BP 100/77
[2016-09-15] MEDS: PCA shift volume MISC SCH (07:00)
[2016-09-15 07:52] VITALS: BP 122/79
[2016-09-15] MEDS: Lactobacillus-GG tablet ORAL SCH ×2 (08:53→17:47)
[2016-09-15] MEDS: Docusate 100mg tablet ORAL SCH (08:53)
[2016-09-15] MEDS: Vancomycin 1.25 GM in D5W 275 ML IVPB SCH (08:54)
[2016-09-15] MEDS: Heparin 5000 units/ml inj SUBQ SCH (09:03)
[2016-09-15] MEDS: Miralax 17gm pkt ORAL PRN (09:27)
--- NOTE | 2016-09-15 10:15 | Urology Progress Note ---
Assessment/Plan Assessment/Plan 1. Urinary retention. 2. Probable atonic bladder. 3. Hematuria. 4. POD # 7, cysto araya out monitor for voiding reinsert araya PRN outpt f/u in [place] Subjective Allergies: Coded Allergies: No Known Allergies (Unverified , 09/05/16) Subjective all noted, voiding sx's better Objective Last 24 Hour Vital Signs Date Time Temp Pulse Resp B/P Pulse Ox O2 Delivery O2 Flow Rate FiO2 09/15/16 08:00 20 09/15/16 07:52 96.8 97 20 122/79 96 Room Air 09/15/16 04:08 98.4 87 19 100/77 98 Room Air 09/15/16 04:00 20 09/15/16 00:23 98.2 82 18 105/79 100 Room Air 09/15/16 00:00 20 09/14/16 20:44 98.1 88 19 101/54 94 Room Air 09/14/16 20:00 20 09/14/16 16:43 98.1 79 19 114/70 96 Room Air 09/14/16 16:00 20 09/14/16 12:00 20 09/14/16 11:48 97.5 109 19 136/79 97 Room Air Intake and Output 09/14/16 09/15/16 19:00 07:00 Intake Total 800 ml 785 ml Output Total 1500 ml 1900 ml Balance -700 ml -1115 ml Intake Oral 800 ml 360 ml IV Total 425 ml Output Urine Total 1500 ml 1900 ml # Voids 4 2 Microbiology Date/Time Source Procedure Growth Status 09/05/16 14:05 Blood Blood Culture - Final NO GROWTH AFTER 5 DAYS Complete 09/12/16 12:10 Buttock Left Gram Stain - Final Resulted 09/12/16 12:10 Aerobic Culture - Preliminary Staphylococcus Sp Coag Neg Resulted 09/12/16 12:10 Buttock Left Anaerobic Culture - Preliminary NO GROWTH AFTER 48 HOURS Resulted Current Medications Medications (Trade) Dose Ordered Sig/Dylon Route PRN Reason Start Time Stop Time Status Last Admin Dose Admin Acetaminophen (Tylenol) 650 mg Q4H PRN ORAL FEVER>100.5 09/12/16 13:45 10/12/16 13:44 Al Hydroxide/Mg Hydroxide (Mylanta II) 30 ml Q6H PRN ORAL dyspepsia 09/05/16 16:00 10/05/16 15:59 Bisacodyl (Dulcolax) 10 mg HSPRN PRN RECTAL Constipation 3RD LINE AGENT 09/05/16 16:00 10/05/16 15:59 Cefepime HCl/ Dextrose (Maxipime/D5W) 55 ml @ 110 mls/hr Q24H IVPB 09/13/16 11:00 09/20/16 10:59 09/14/16 11:27 Dextrose (Dextrose 50%) STAT PRN IV Hypoglycemia 09/05/16 16:00 10/05/16 15:59 Dextrose/Sodium Chloride (D5ns) 1,000 ml @ 50 mls/hr Q20H IV 09/05/16 17:00 10/05/16 16:59 09/14/16 20:29 Diphenhydramine HCl (Benadryl) 25 mg Q6H PRN ORAL Itching/Pruritis 09/14/16 10:00 10/14/16 09:59 Docusate Sodium (Colace) 100 mg EVERY 12 HOURS ORAL 09/05/16 21:00 10/05/16 20:59 09/15/16 08:53 Heparin Sodium (Porcine) (Heparin 5000 units/ml) 5,000 units EVERY 12 HOURS SUBQ 09/12/16 21:00 10/12/16 20:59 09/15/16 09:03 Hydromorphone HCl (Dilaudid) 2 mg Q4H PRN IVP Moderate Pain (Pain Scale 4-6) 09/14/16 08:00 09/16/16 07:59 09/14/16 11:32 Hydromorphone HCl (DYE BOX OPERATOR Dilaudid) 30 ml @ 0 mls/hr Q24H PRN IV For Pain 09/14/16 08:00 09/16/16 07:59 09/14/16 15:36 Hydromorphone HCl 2 mg 2 mg Q3H PRN SUBQ Severe Pain (Pain Scale 7-10) 09/14/16 08:00 09/16/16 07:59 Lactobacillus Acidophilus (Culturelle) 1 tab TWICE A DAY ORAL 09/05/16 18:00 10/05/16 17:59 09/15/16 08:53 Magnesium Hydroxide (Mom) 30 ml HSPRN PRN ORAL Constipation 2ND LINE AGENT 09/05/16 16:00 10/05/16 15:59 Metoclopramide HCl (Reglan) 10 mg Q6H PRN IVP Nausea & Vomiting 09/06/16 13:30 10/06/16 13:29 09/06/16 19:51 Miscellaneous Medication (DYE BOX OPERATOR Rate Change) 1 ea DAILY PRN MISC DYE BOX OPERATOR RATE CHANGE 09/14/16 19:45 09/16/16 07:59 Miscellaneous Medication (DYE BOX OPERATOR shift volume) 1 ea Q12HR@0700,1900 MISC 09/14/16 19:00 09/16/16 07:59 09/15/16 07:00 Naloxone HCl 0.1 mg 0.1 mg PRN IV . 09/10/16 08:00 09/18/16 07:59 Ondansetron HCl (Zofran) 4 mg Q6H PRN IVP Nausea & Vomiting 09/14/16 10:00 10/14/16 09:59 09/14/16 13:19 Polyethylene Glycol (Miralax) 17 gm HSPRN PRN ORAL Constipation FIRST LINE AGENT 09/05/16 16:00 10/05/16 15:59 09/15/16 09:27 Vancomycin HCl 1 ea 1 ea DAILY PRN MISC Per rx protocol 09/12/16 14:45 10/12/16 14:44 Vancomycin HCl/ Dextrose (Vancomycin/D5W) 275 ml @ 183.708 mls/hr Q12HR IVPB 09/14/16 21:00 09/17/16 20:59 09/15/16 08:54 Zolpidem Tartrate (Ambien) 5 mg HSPRN PRN ORAL Insomnia 09/08/16 21:00 10/08/16 20:59 Height (Feet): 5 Height (Inches): 4.50 Weight (Pounds): 138 Objective exam stable KEYLA KELLEY Sep 15, 2016 10:15
[2016-09-15] MEDS ORDERED: BACTRIM DS TAB1 EAC1 ORAL (10:53)
[2016-09-15] MEDS ORDERED: NORCO 5-325 TA1 EACH ORAL (10:53)
[2016-09-15] MEDS: Cefepime HCl 1 GM in D5W 55 ML IVPB SCH (11:03)
[2016-09-15] MEDS ORDERED: Norco 10mg/325mg tab ORAL PRN (11:30)
[2016-09-15 12:06] VITALS: BP 139/81
[2016-09-15] MEDS ORDERED: Tubing IV Secondary IV ONE (15:14)
[2016-09-15] MEDS ORDERED: D5NS 1000ml IV ONE (15:14)
[2016-09-15 16:00] VITALS: BP 121/78
[2016-09-15] MEDS: D5NS 1,000 ML IV SCH (17:00)
[2016-09-15] MEDS ORDERED: PCA shift volume MISC SCH (19:00)
[2016-09-15 20:00] VITALS: BP 129/75
--- NOTE | 2016-09-15 22:54 | Discharge Summary ---
Discharge Summary Hospital Course Date of Admission Sep 05, 2016 at 15:02 Date of Discharge 09/15/16 Admitting Diagnosis hidradenitis Reason for Hospitalization: groin abscess HPI 50 y/o AA female with hx of hidradenitis, presents with painful groin lesions for the past 1-2 weeks. No fevers/chills. Attempted po abx but acquired cdiff as a result. Pain is difficult to control Consultations Plastic surgery Urology Procedures Excision of infected left buttock tissue and right groin tissue with flap elevation on 09/06/16 Cystoscopy, urethral dilation on 09/08 Exploration of left buttock wound, drainage of left buttock wound, and debridement of left buttock wound on 09/12 Discharge Medications New Medications: Hydrocodone Bit/Acetaminophen 5-325* ([place] 5-325*) 1 Each Tablet 1 TAB ORAL Q6H PRN, #30 TAB 0 Refills Trimethoprim/Sulfamethoxazole 160/800* (Bactrim Ds Tablet*) 1 Each Tablet 1 TAB ORAL Q12H, #14 TAB 0 Refills Discharge Condition Upon Discharge: stable Discharge Disposition Patient was discharged to Discharge Diagnoses: (1) Groin abscess (2) Hidradenitis (3) Urinary retention (4) Hematuria Yordan Russ M.D. Sep 15, 2016 22:53
== END 2016-09-16 05:50 | disposition home or self-care (01) | DRG 578 ==
LOC: EMR 14:27 → 3E 15:02 → EDBEDREQ 15:48 → 3E 18:39
PROC: 0H8HXZZ Division of Right Upper Leg Skin, External Approach (ICD-10-PCS; principal; 2016-09-06 13:00)
PROC: 0JXL0ZC Transfer Right Upper Leg Subcutaneous Tissue and Fascia with Skin, Subcutaneous Tissue and Fascia, Open Approach (ICD-10-PCS; principal; 2016-09-06 13:00)
PROC: 0JBL0ZZ Excision of Right Upper Leg Subcutaneous Tissue and Fascia, Open Approach (ICD-10-PCS; principal; 2016-09-06 13:00)
PROC: 0JB90ZZ Excision of Buttock Subcutaneous Tissue and Fascia, Open Approach (ICD-10-PCS; principal; 2016-09-06 13:00)
PROC: 0JQ90ZZ Repair Buttock Subcutaneous Tissue and Fascia, Open Approach (ICD-10-PCS; 2016-09-08 07:00)
PROC: 0T7D8ZZ Dilation of Urethra, Via Natural or Artificial Opening Endoscopic (ICD-10-PCS; 2016-09-08 07:00)
PROC: 0JXL0ZC Transfer Right Upper Leg Subcutaneous Tissue and Fascia with Skin, Subcutaneous Tissue and Fascia, Open Approach (ICD-10-PCS; 2016-09-08 07:00)
PROC: 0JD90ZZ Extraction of Buttock Subcutaneous Tissue and Fascia, Open Approach (ICD-10-PCS; 2016-09-08 07:00)
PROC: 0JDC0ZZ Extraction of Pelvic Region Subcutaneous Tissue and Fascia, Open Approach (ICD-10-PCS; 2016-09-08 07:00)
PROC: 0H88XZZ Division of Buttock Skin, External Approach (ICD-10-PCS; 2016-09-08 07:00)
PROC: 0JD90ZZ Extraction of Buttock Subcutaneous Tissue and Fascia, Open Approach (ICD-10-PCS; 2016-09-12)
PROC: 0J990ZZ Drainage of Buttock Subcutaneous Tissue and Fascia, Open Approach (ICD-10-PCS; 2016-09-12)
DX: L73.2 Hidradenitis suppurativa (principal); N31.2 Flaccid neuropathic bladder, not elsewhere classified; L02.214 Cutaneous abscess of groin; R33.9 Retention of urine, unspecified; R31.9 Hematuria, unspecified; L02.31 Cutaneous abscess of buttock; N35.9 Urethral stricture, unspecified
CPT/HCPCS: 36415; 71010; 80048; 80053; 80202; 81003; 81025; 83605; 85007; 85025; 87040; 87070; 87075; 87205; 93005; 94003; 94150; J2180; J2250; J2405; J2710; J2765; J8499